=== PATIENT | male | born 1975 | race Caucasian/White ===

== ENCOUNTER 2020-06-01 13:34 | Outpatient (REF) | payer BC, SELFPAY | END 2020-06-01 13:35 | disposition home or self-care (01) | LOC: HO.LAB 13:34 | PROVIDERS: PCP Internal Medicine; Visit Provider Internal Medicine | DX: Z20.828 Contact with and (suspected) exposure to other viral communicable diseases (principal) | CPT/HCPCS: C9803; U0003 ==

== ENCOUNTER 2020-08-20 15:30 | Outpatient (REF) | payer BC, SELFPAY | END 2020-08-20 15:31 | disposition home or self-care (01) | LOC: HO.LAB 15:30 | PROVIDERS: Visit Provider Internal Medicine | DX: Z20.822 Contact with and (suspected) exposure to COVID-19 (principal) | CPT/HCPCS: 36415; C9803; U0003; U0005 ==

== ENCOUNTER 2021-06-10 09:25 | Inpatient (IN) | payer OTHER, SELFPAY ==
--- NOTE | ~2021-06-10 | CT_ITS ---
EXAMINATION: CT ABDOMEN AND PELVIS WITH CONTRAST CLINICAL INFORMATION: Left lower quadrant pain COMPARISON: None TECHNIQUE: Multidetector volumetric images were obtained from the superior aspect of the liver through the pubic symphysis following administration 85 mL of Omnipaque 350 intravenous contrast. Sagittal and coronal reformatted images were obtained on the technologist's workstation. Oral contrast: Yes This CT examination was performed using dose optimization techniques as appropriate, variously including the following: *Automated exposure control *Adjustment of mA and/or kV according to patient size (this includes techniques or standardized protocols for targeted exams where dose is matched to indication/reason for exam; i.e. extremities or head) *Use of iterative reconstruction technique DLP: 872 mGy-cm FINDINGS: LUNG BASES: There are bilateral lower lobe peripheral nodular opacities. Chest CT appearance is nonspecific. LIVER, GALLBLADDER, AND BILIARY TREE: The liver is low in attenuation suggestive of fatty infiltration. No focal hepatic lesion or biliary ductal dilatation is present. The gallbladder is unremarkable with no evidence of radiopaque gallstones, gallbladder wall thickening, or obvious pericholecystic inflammatory changes. PANCREAS: Unremarkable. SPLEEN: Unremarkable. ADRENAL GLANDS: Unremarkable. KIDNEYS AND URETERS: The kidneys are normal in size, shape, and attenuation. No hydronephrosis, hydroureter, or calculi seen. No perinephric stranding. BLADDER: Unremarkable. GASTROINTESTINAL TRACT: There is mild diverticulosis. There is wall thickening and edema of the distal left colon, extensive stranding of the surrounding fat and a small amount of surrounding fluid. Findings are suggestive of diverticulitis or colitis. No evidence of obstruction, perforation or abscess is. ABDOMINAL WALL: No significant hernia is appreciated. LYMPH NODES: Normal. VASCULAR: Unremarkable. PELVIC VISCERA: Unremarkable. OSSEOUS STRUCTURES: Unremarkable. CT/CT abdomen pelvis w con IMPRESSION: Wall thickening and edema of the distal left colon, extensive stranding of the surrounding fat and small amount of fluid. Diverticulitis and colitis should be considered. No evidence of obstruction, perforation or abscess. Fatty liver. Peripheral nodular opacities at the lung bases. This is a nonspecific appearance. Infectious, inflammatory and neoplastic processes should be considered. Covid infection should be excluded. Fleischner guidelines were followed.
[2021-06-10 09:33] VITALS: BP 154/106; PULSE 99; RESP 18; TEMP 36.8; O2SAT 98; BMI 31.8
[2021-06-10 09:59] LABS: Basophils Percent Auto 0.1 % (0-2); COVID-19 Test Positive (Negative); Hematocrit 42.4 % (42.0-52.0); Hemoglobin 15.1 g/dl (14.0-18.0); IDNOW Serial# 9DD0AD1C; Imm Gran Abs Auto 0.02 X10*3/uL (0.00-0.03); Imm Gran Pct Auto 0.3 % (0.0-0.4); Lymphocytes Absolute Auto 1.5 X10*3/uL (1.2-4.9); Lymphocytes Percent Auto 21.4 % (20-40); MANUAL DIFF FLAG SCAN; Mean Corpuscular HGB Conc 35.6 g/dl (31.0-36.0); Mean Corpuscular Hemoglobin 33.6 pg (27.0-33.0); Mean Corpuscular Volume 94.2 fL (80.0-98.0); Mean Platelet Volume 9.1 fL (9.4-12.4); Monocytes Absolute Auto 1.7 X10*3/uL (0.1-1.2); Monocytes Percent Auto 23.6 % (2-11); Neutrophils Absolute Auto 3.9 x10*3/uL (2.0-8.3); Neutrophils Percent Auto 54.6 % (45-73); Platelet Count 195 X10*3/uL (160-400); Red Cell Distribution Width 11.5 % (11.0-16.0); SCAN SMEAR FLAG 1; White Blood Count 7.2 X10*3/uL (4.8-10.8)
[2021-06-10 10:13] LABS: Alanine Aminotransferase 47 U/L (0-40); Albumin Level 4.5 g/dL (3.5-5.0); Alkaline Phosphatase 68 U/L (39-117); Anion Gap 16 (12-20); Aspartate Amino Transferase 31 U/L (5-37); Bilirubin Direct 0.4 mg/dL (0.0-0.5); Bilirubin Total 0.8 mg/dL (0.0-1.0); Blood Urea Nitrogen 9 mg/dL (9-16); Calcium 9.3 mg/dL (8.4-10.2); Carbon Dioxide 23 mmol/L (22-29); Chloride 100 mmol/L (96-108); Creatinine Clr Calc Pharmacy 115.4; Estimated Glomerular Filt Rate > 60; Glucose Random 108 mg/dL (60-115); Lipase 54 U/L (8-78); Potassium 4.1 mmol/L (3.3-5.1); Sodium 135 mmol/L (135-145); Total Protein 7.8 g/dL (6.5-8.0)
[2021-06-10 10:20] LABS: SLIDE REVIEW VERIFIED
--- NOTE | 2021-06-10 13:45 | ED.ABDPAIN ---
HPI - Abdominal Pain General Chief Complaint: Abdominal Pain Stated Complaint: diverticulitis Time Seen by Provider: 06/10/21 13:26 Source: patient Mode of arrival: ambulatory History of Present Illness HPI narrative: 45-year-old male with past medical history of diverticulitis presenting to ED complaining of left lower quadrant abdominal pain x3 days. Pain is nonradiating. also reports low-grade fever 99 this morning. Denies nausea, vomiting, diarrhea, constipation, dysuria /hematuria, flank pain MD elicited complaint: abdominal pain Pertinent past history: diverticulitis Onset (ago): day(s) Pain Consistency: constant Location: LLQ Severity: severe Related Data Allergies Allergy/AdvReac Type Severity Reaction Status Date / Time No Known Allergies Allergy Verified 06/10/21 09:33 Review of Systems Review of Systems Constitutional: + Fever, No Chills, No Fatigue, No Malaise ENT/Mouth: No Hearing loss, No Ear Pain, No sore throat Eyes: No Eye Pain, No Swelling, No Redness Cardiovascular: No Chest Pain, No SOB Respiratory: No Cough, No Dyspnea Gastrointestinal: No Nausea, No Vomiting, No Diarrhea, No Constipation, + Abdominal pain Genitourinary: No Dysuria, No Urinary Frequency, No Hematuria, No Flank Pain, No Urinary Flow Changes Musculoskeletal: No joint pain, No Myalgias, No Joint Swelling Skin: No Skin Lesions, No rash Neuro: No Weakness, No Dizziness, No Headache Yes all other systems are reviewed and are negative Physical Exam Vital Signs: Vital Signs: Last Vital Signs Temp 98.6 F 06/10/21 15:45 Pulse 66 06/10/21 15:45 Resp 18 06/10/21 15:45 BP 147/88 H 06/10/21 15:45 Pulse Ox 95 06/10/21 15:45 BMI result Body Mass Index 31.8 Const: Other: in pain General: cooperative and healthy appearing Orientation/consciousness: patient oriented x3 Limitations: no limitations HENMT: Head: Yes normal to inspection Ears: hearing grossly normal bilaterally General nose exam: Normal external nose present Face and sinus: Yes normal facial exam Eyes: General: appearance normal, both eyes and all related structures EOM: EOMs intact bilaterally Neck: Neck: Yes normal visual inspection and Yes no meningeal signs Resp: Effort & Inspection: normal respiratory effort and no respiratory distress Cardio: Rate: regular rate GI: Inspection: Yes normal to inspection Palpation (GI): Soft to palpation, Tenderness to palpation present (GI) in the LLQ and in the LUQ, Guarding due to palpation present (GI) in the LLQ and not rigid : General: Yes no CVA tenderness Back/Spine/Pelvis: Back: no CVA tenderness Skin: Rashes: no rashes Wounds: no wounds Neuro: General: patient oriented x3 and no meningeal signs Gait exam (Neuro): Normal gait present Extrem: General: Yes normal to inspection Course Course Course Narrative: -1400-- no leukocytosis, ALT mildly elevated, labs otherwise unremarkable - COVID-19 positive, patient aware admits has been COVID-19 positive x1 week -1526--CT abdomen pelvis w con IMPRESSION: Wall thickening and edema of the distal left colon, extensive stranding of the surrounding fat and small amount of fluid. Diverticulitis and colitis should be considered. No evidence of obstruction, perforation or abscess. Fatty liver. ? Peripheral nodular opacities at the lung bases. This is a nonspecific appearance. Infectious, inflammatory and neoplastic processes should be considered. Covid infection should be excluded. ? Fleischner guidelines were followed. >> on re-evaluation patient is still in significant amount of pain, IV Dilaudid ordered as well as IV Levaquin and Flagyl. Will re-evaluate with need of admission vs ability to DC home -1612-- patient is still in significant amount of pain, plan is for admission. Unable to tolerate p.o. at this time MDM - Abdominal Pain MDM Narrative Medical decision making narrative: 45-year-old male with past medical history of diverticulitis presenting to ED complaining of left lower quadrant abdominal pain x3 days. On exam hypertensive likely from pain, abdomen soft with LUQ and LLQ ttp and guarding, no CVAT. Concern for diverticulitis vs pancreatitis vs less likely renal stone/ colic or SBO. Lower concern for appendicitis Plan: Labs, UA, lactic/ blood cultures, CT AP, pain management, IVF Low concern for severe sepsis at this time Differential Diagnosis Differential diagnosis: Likely abdominal pain, renal colic and small bowel obstruction Medical Records Attestation: I reviewed the patient's medical records. Lab Data Attestation: I reviewed the patient's lab results. Result diagrams: 06/10/21 09:44 06/10/21 09:44 Labs: Lab Results 06/10/21 06/10/21 06/10/21 Range/Units 09:44 09:44 09:44 WBC 7.2 (4.8-10.8) X10*3/uL RBC 4.50 L (4.60-5.80) X10*6/uL Hgb 15.1 (14.0-18.0) g/dl Hct 42.4 (42.0-52.0) % MCV 94.2 (80.0-98.0) fL MCH 33.6 H (27.0-33.0) pg MCHC 35.6 (31.0-36.0) g/dl RDW 11.5 (11.0-16.0) % Plt Count 195 (160-400) X10*3/uL MPV 9.1 L (9.4-12.4) fL Immature Gran % (Auto) 0.3 (0.0-0.4) % Neut % (Auto) 54.6 (45-73) % Lymph % (Auto) 21.4 (20-40) % [place] % (Auto) 23.6 H (2-11) % Eos % (Auto) 0.0 (0-4) % Baso % (Auto) 0.1 (0-2) % Lymph # (Auto) 1.5 (1.2-4.9) X10*3/uL [place] # (Auto) 1.7 H (0.1-1.2) X10*3/uL Eos # (Auto) 0.0 (0.0-0.4) X10*3/uL Baso # (Auto) 0.0 (0.0-0.2) X10*3/uL Abs Immat Gran (auto) 0.02 (0.00-0.03) X10*3/uL Absolute Neuts (auto) 3.9 (2.0-8.3) x10*3/uL Absolute Nucleated RBC 0.000 (0.0-0.012) X10*3/uL Nucleated RBC % (auto) 0.0 (0.0-0.2) /100WBC Smear Tech's Comments VERIFIED Sodium 135 (135-145) mmol/L Potassium 4.1 (3.3-5.1) mmol/L Chloride 100 (96-108) mmol/L Carbon Dioxide 23 (22-29) mmol/L Anion Gap 16 (12-20) BUN 9 (9-16) mg/dL Creatinine 1.03 (0.5-1.4) mg/dL Estim Creat Clear Calc 115.4 Estimated GFR > 60 Random Glucose 108 (60-115) mg/dL Lactic Acid (0.5-2.0) mmol/L Calcium 9.3 (8.4-10.2) mg/dL Magnesium 2.2 (1.6-2.6) mg/dL Total Bilirubin 0.8 (0.0-1.0) mg/dL Direct Bilirubin 0.4 (0.0-0.5) mg/dL AST 31 (5-37) U/L ALT 47 H (0-40) U/L Alkaline Phosphatase 68 (39-117) U/L Total Protein 7.8 (6.5-8.0) g/dL Albumin 4.5 (3.5-5.0) g/dL Lipase 54 (8-78) U/L Urine Color Urine Appearance Urine pH (5.0-8.0) Ur Specific [place] (1.005-1.025) Urine Protein (NEG-TRACE) MG/DL Urine Glucose (UA) (NEG) MG/DL Urine Ketones (NEG) MG/DL Urine Blood (NEG) Urine Nitrite (NEG) Ur Leukocyte Esterase (NEG) COVID-19 (COURT) Positive A (Negative) COVID-19 Clin Com See Note 06/10/21 06/10/21 Range/Units 14:36 14:37 WBC (4.8-10.8) X10*3/uL RBC (4.60-5.80) X10*6/uL Hgb (14.0-18.0) g/dl Hct (42.0-52.0) % MCV (80.0-98.0) fL MCH (27.0-33.0) pg MCHC (31.0-36.0) g/dl RDW (11.0-16.0) % Plt Count (160-400) X10*3/uL MPV (9.4-12.4) fL Immature Gran % (Auto) (0.0-0.4) % Neut % (Auto) (45-73) % Lymph % (Auto) (20-40) % [place] % (Auto) (2-11) % Eos % (Auto) (0-4) % Baso % (Auto) (0-2) % Lymph # (Auto) (1.2-4.9) X10*3/uL [place] # (Auto) (0.1-1.2) X10*3/uL Eos # (Auto) (0.0-0.4) X10*3/uL Baso # (Auto) (0.0-0.2) X10*3/uL Abs Immat Gran (auto) (0.00-0.03) X10*3/uL Absolute Neuts (auto) (2.0-8.3) x10*3/uL Absolute Nucleated RBC (0.0-0.012) X10*3/uL Nucleated RBC % (auto) (0.0-0.2) /100WBC Smear Tech's Comments Sodium (135-145) mmol/L Potassium (3.3-5.1) mmol/L Chloride (96-108) mmol/L Carbon Dioxide (22-29) mmol/L Anion Gap (12-20) BUN (9-16) mg/dL Creatinine (0.5-1.4) mg/dL Estim Creat Clear Calc Estimated GFR Random Glucose (60-115) mg/dL Lactic Acid 1.2 (0.5-2.0) mmol/L Calcium (8.4-10.2) mg/dL Magnesium (1.6-2.6) mg/dL Total Bilirubin (0.0-1.0) mg/dL Direct Bilirubin (0.0-0.5) mg/dL AST (5-37) U/L ALT (0-40) U/L Alkaline Phosphatase (39-117) U/L Total Protein (6.5-8.0) g/dL Albumin (3.5-5.0) g/dL Lipase (8-78) U/L Urine Color STRAW Urine Appearance CLEAR Urine pH 6.0 (5.0-8.0) Ur Specific [place] <= 1.005 (1.005-1.025) Urine Protein NEG (NEG-TRACE) MG/DL Urine Glucose (UA) NEG (NEG) MG/DL Urine Ketones 15 (NEG) MG/DL Urine Blood NEG (NEG) Urine Nitrite NEG (NEG) Ur Leukocyte Esterase NEG (NEG) COVID-19 (COURT) (Negative) COVID-19 Clin Com Discharge Plan Discharge Clinical Impression: Diverticulitis, Colitis Patient Disposition: Admitted As Inpatient [facility] Past Medical History Attestation statement: The following information was validated with the patient. Social History Social History Alcohol intake: unknown Patient Tobacco Use Status: Never used Tobacco Smoked in Last 30 Days: No Use of substances other than those prescribed or required for medical reasons: No Advance Directives: No Advance Directives Information Provided: No
[2021-06-10 14:00] VITALS: BP 178/108; PULSE 98; RESP 18; TEMP 37.4; O2SAT 99
[2021-06-10 14:06] LABS: Magnesium 2.2 mg/dL (1.6-2.6)
[2021-06-10] MEDS: Ketorolac Tromethamine 30 MG/ML VIAL 15 MG IVPUSH (14:15)
[2021-06-10] MEDS: 0.9 % Sodium Chloride 1,000 ML 999 ML IV ×2 (14:15→15:28)
[2021-06-10] MEDS: Morphine Sulfate 4 MG/ML CARTRIDGE IVPUSH ×2 (14:18→21:35)
[2021-06-10] MEDS: iohexoL 350 MG/ML 100 ML INFUS..BTL IV (14:23)
[2021-06-10 14:47] LABS: Appearance Urine CLEAR; Color Urine STRAW; Glucose Urine UA NEG (NEG); Leukocyte Esterase Urine NEG (NEG); Nitrite Urine NEG (NEG); Specific Gravity - Urine <= 1.005 (1.005-1.025); Urine Blood NEG (NEG); Urine Ketones 15 MG/DL (NEG); Urine Protein NEG (NEG-TRACE)
[2021-06-10 14:59] LABS: Lactic Acid 1.2 mmol/L (0.5-2.0)
[2021-06-10] MEDS: HYDROmorphone HCl 0.5 MG/0.5 ML SYRINGE IVPUSH ×2 (15:38→17:32)
[2021-06-10] MEDS: metroNIDAZOLE/NS 500 MG/100 ML PIGGYBACK 100 MG IV ×2 (15:39→22:42)
[2021-06-10 15:45] VITALS: BP 147/88; PULSE 66; RESP 18; TEMP 37; O2SAT 95
--- NOTE | 2021-06-10 15:48 | PC.NURSE ---
pt. well appearing. Speaking in full, clear sentences. RR equal and unlabored. Abdomen round, soft, tender to LLQ radiating under the umbilicus. No n/v/d. SKin appropriate for ethnicity
--- NOTE | 2021-06-10 16:00 | PC.NURSE ---
didnt reassess pain after morphine or toradol from previous shift. New pain assessment completed prior to administration of dilaudid
--- NOTE | 2021-06-10 16:58 | P.EN_ITS ---
Event Note Date of Service: 06/10/21 Event Note: the patient was seen and evaluated with EVERTON Jama. I agree with her note, assessment and plan with the following. In Summary, A 45 yo male with PMH of HTN and diverticulitis who presents to the hospital with abd pain for less than a day. He had 3 previous attacks of diverticulitis followed at [facility]. No colonoscopy done, no surgeries. First one 5 years ago. Diverticulitis/Colitis Flagyl+Levofloxacin IVF Liquid diet Surgery consult Rest of evaluations by EVERTON note.
[2021-06-10] MEDS: levoFLOXacin/D5W 750 MG/150 ML PIGGYBACK 100 MG IV (17:00)
--- NOTE | 2021-06-10 17:08 | PM.IMHP ---
History of Present Illness Date of Service: 06/10/21 Attending physician on admission: Viridiana Morton Chief Complaint: Abdominal pain This is a 45-year-old male with history of hypertension, recently diagnosed with COVID-19 who presents the emergency department with abdominal pain. He states he tested positive for COVID-19 approximately week and half ago, he has so far been asymptomatic. He has been having left lower quadrant abdominal pain for the past 3 days. He has no associated nausea, vomiting, diarrhea. He has history of diverticulitis in the past. His pain is consistent with his previous episodes of diverticulitis. He has been attempting to control his symptoms with a liquid diet. He denies any associated fever or chills. His symptoms persisted today and his pain is more severe than any previous bout of diverticulitis in the past and this prompted him to come to the hospital for further evaluation. He is afebrile. Lab work is unremarkable with no evidence of leukocytosis. CT scan of the abdomen shows wall thickening and edema of the distal left colon, extensive stranding of the surrounding fat and small amount of fluid. Diverticulitis and colitis should be considered. No evidence of obstruction perforation or abscess. It also showed nodular opacities at the lung bases which was nonspecific. He was treated with IV antibiotics and a decision was made to admit him to the hospital due to severe persistent abdominal pain. COVID-19 vaccination status- received Moderna vaccine x2 Review of Systems Constitutional: Constitutional: Denies chills and Denies fever(s) Cardiovascular: Cardiovascular: Denies dyspnea Respiratory: Respiratory: Denies cough and Denies dyspnea Gastrointestinal: Gastrointestinal: Reports abdominal pain, Denies nausea and Denies vomiting [facility] Medical History (Updated 06/10/21 @ 17:14 by EVERTON Watt) Diverticulitis HTN (hypertension) Functional capacity: independent ambulation Family History (Updated 06/10/21 @ 17:15 by EVERTON Watt) Other Diabetes Social History (Updated 06/10/21 @ 17:15 by EVERTON Watt) Alcohol intake: current Patient Tobacco Use Status: Never used Tobacco Smoked in Last 30 Days: No Use of substances other than those prescribed or required for medical reasons: No Advance Directives: No Advance Directives Information Provided: No Meds Allergies Allergy/AdvReac Type Severity Reaction Status Date / Time No Known Allergies Allergy Verified 06/10/21 09:33 Active Medications: Current Medications Acetaminophen (Acetaminophen 325 Mg Tablet) 650 mg PO Q6H PRN PRN Reason: Pain, Mild (Pain Scale 1-3) Docusate Sodium (Docusate Sodium 100 Mg Capsule) 100 mg PO DAILY PRN PRN Reason: Constipation Enoxaparin Sodium (Enoxaparin Sodium 40 Mg/0.4 Ml Syringe) 40 mg SUBCUT Q24H MISHEL Levofloxacin (Levaquin) 500 mg in 100 mls @ 100 mls/hr IV Q24H MISHEL Metronidazole (Flagyl) 500 mg in 100 mls @ 100 mls/hr IV Q8H [facility] Lactated Ringer's (Lr) 1,000 mls @ 100 mls/hr IVCONT .Q10H MISHEL Morphine Sulfate (Morphine Sulfate 4 Mg/Ml Cartridge) 4 mg IVPUSH Q4H PRN; Protocol PRN Reason: Pain, Severe (Pain Scale 7-10) Ondansetron HCl (Ondansetron Hcl 4 Mg/2 Ml Vial) 4 mg IVPUSH Q8H PRN PRN Reason: Nausea and Vomiting Pharmacy Consult (Consult Rx Perform Med Rec) 1 each MISCELLANE ONCE PRN PRN Reason: Consult order Sodium Chloride (0.9 % Sodium Chloride Flush 3 Ml Syringe) 3 ml IVFLUSH QSHIFT [facility] Home Medications Medication Instructions Recorded Confirmed Last Taken Type atorvastatin 40 mg tablet 1 tab PO DAILY 06/10/21 06/10/21 Unknown History clonidine HCl 0.2 mg tablet 1 tab PO BID 06/10/21 06/10/21 Unknown History lisinopril 20 mg tablet 1 tab PO DAILY 06/10/21 06/10/21 Unknown History Physical Exam Vital Signs and Narrative: Vital Signs: Last Vital Signs Temp 98.6 F 06/10/21 15:45 Pulse 66 06/10/21 15:45 Resp 18 06/10/21 15:45 BP 147/88 H 06/10/21 15:45 Pulse Ox 95 06/10/21 15:45 BMI result Body Mass Index 31.8 Const: Nutritional Appearance: well nourished Orientation/consciousness: patient oriented x3 HENMT: Head: Yes normocephalic and Yes atraumatic Eyes: Sclerae: sclerae normal Resp: Effort & Inspection: normal respiratory effort and no respiratory distress Auscultation: clear to auscultation bilaterally Cardio: Rate: regular rate Rhythm: regular rhythm GI: Other: tender to palpation primarily in the left lower quadrant Inspection: No distended Palpation (GI): Soft to palpation Neuro: General: patient oriented x3 Cranial nerves: Yes CN's II-XII intact bilaterally and Yes Bilaterally intact EOM present Results Labs CBC and Chem 7: 06/10/21 09:44 06/10/21 09:44 Labs: Laboratory Results - last 24 hr 06/10/21 06/10/21 06/10/21 09:44 09:44 09:44 MCV 94.2 MCH 33.6 H MCHC 35.6 RDW 11.5 Plt Count 195 MPV 9.1 L Immature Gran % (Auto) 0.3 Neut % (Auto) 54.6 Lymph % (Auto) 21.4 [place] % (Auto) 23.6 H Eos % (Auto) 0.0 Baso % (Auto) 0.1 Lymph # (Auto) 1.5 [place] # (Auto) 1.7 H Eos # (Auto) 0.0 Baso # (Auto) 0.0 Abs Immat Gran (auto) 0.02 Absolute Neuts (auto) 3.9 Absolute Nucleated RBC 0.000 Nucleated RBC % (auto) 0.0 Smear Tech's Comments VERIFIED Anion Gap 16 Estim Creat Clear Calc 115.4 Estimated GFR > 60 Random Glucose 108 Lactic Acid Calcium 9.3 Magnesium 2.2 Total Bilirubin 0.8 Direct Bilirubin 0.4 AST 31 ALT 47 H Alkaline Phosphatase 68 Total Protein 7.8 Albumin 4.5 Lipase 54 Urine Color Urine Appearance Urine pH Ur Specific [place] Urine Protein Urine Glucose (UA) Urine Ketones Urine Blood Urine Nitrite Ur Leukocyte Esterase COVID-19 (COURT) Positive A COVID-19 Clin Com See Note 06/10/21 06/10/21 14:36 14:37 MCV MCH MCHC RDW Plt Count MPV Immature Gran % (Auto) Neut % (Auto) Lymph % (Auto) [place] % (Auto) Eos % (Auto) Baso % (Auto) Lymph # (Auto) [place] # (Auto) Eos # (Auto) Baso # (Auto) Abs Immat Gran (auto) Absolute Neuts (auto) Absolute Nucleated RBC Nucleated RBC % (auto) Smear Tech's Comments Anion Gap Estim Creat Clear Calc Estimated GFR Random Glucose Lactic Acid 1.2 Calcium Magnesium Total Bilirubin Direct Bilirubin AST ALT Alkaline Phosphatase Total Protein Albumin Lipase Urine Color STRAW Urine Appearance CLEAR Urine pH 6.0 Ur Specific [place] <= 1.005 Urine Protein NEG Urine Glucose (UA) NEG Urine Ketones 15 Urine Blood NEG Urine Nitrite NEG Ur Leukocyte Esterase NEG COVID-19 (COURT) COVID-19 Clin Com Imaging Radiologist's Impressions: Impressions Abdomen/Pelvis CT 06/10/21 14:23 IMPRESSION: Wall thickening and edema of the distal left colon, extensive stranding of the surrounding fat and small amount of fluid. Diverticulitis and colitis should be considered. No evidence of obstruction, perforation or abscess. Fatty liver. Peripheral nodular opacities at the lung bases. This is a nonspecific appearance. Infectious, inflammatory and neoplastic processes should be considered. Covid infection should be excluded. Fleischner guidelines were followed. Assessment and Plan (1) Colitis: Status: Acute (2) Diverticulitis: Status: Acute this is a 45-year-old male with history of hypertension, multiple bouts of diverticulitis, recent diagnosis of COVID-19 who presents to the emergency department with abdominal pain found to have recurrent colitis versus diverticulitis abdominal pain CT scan with concern of colitis versus diverticulitis h/o multiple previous bouts of diverticulitis. No previous abdominal surgeries. No previous colonoscopy Continue IV levofloxacin, Flagyl general surgery consultation clear liquid diet, advanced as tolerated; IVF pain management COVID-19 diagnosed approximately 10 days ago. Asymptomatic Not currently requiring supplemental oxygen Isolation hypertension Continue home dose of lisinopril, clonidine DVT prophylaxis -Lovenox Code status- full code HCP - endorses his mother Maira attending-Dr. Morton Quality Stroke Does the patient have a stroke diagnosis?: No VTE Prior VTE?: No VTE Risk Level:: Medical - moderate - high VTE Device Contraindication: N/A - Device Ordered VTE Drug Contraindication: N/A - Med Ordered
[2021-06-10 17:20] VITALS: BP 149/99; PULSE 92; RESP 18; TEMP 36.8; O2SAT 97
--- NOTE | 2021-06-10 17:29 | P.CONGS_ITS ---
History of Present Illness Consult details Consult date: 06/10/21 Narrative: 45M here in the ED for left sided abdominal pain. He says he has had this for 2-3 days. He says he has hx of diverticulitis, and has had 2 episodes in the past. The last one was about 2 years ago. He denies diarrhea of bloody stools. He has never had a colonoscopy in the past. He denies fever at home. Review of Systems Constitutional: Constitutional: Denies chills and Denies fever(s) Cardiovascular: Cardiovascular: Denies chest pain, Denies dyspnea and Denies dyspnea on exertion Respiratory: Respiratory: Denies cough, Denies dyspnea and Denies dyspnea on exertion Gastrointestinal: Gastrointestinal: Denies hematochezia and Denies change in bowel habits Genitourinary: Genitourinary: Denies hematuria and Denies difficulty urinating Musculoskeletal: Musculoskeletal: Denies back pain and Denies limited range of motion Neurologic: Denies focal weakness and Denies convulsions Psychiatric: Psychiatric: Denies depression and Denies mood swings PMF Past Medical History Medical History Diverticulitis HTN (hypertension) Functional capacity: independent ambulation Family History Family History Other Diabetes Social History Social History Alcohol intake: current Patient Tobacco Use Status: Never used Tobacco Smoked in Last 30 Days: No Use of substances other than those prescribed or required for medical reasons: No Advance Directives: No Advance Directives Information Provided: No service: No Current occupational status: employed Meds Allergies Allergy/AdvReac Type Severity Reaction Status Date / Time No Known Allergies Allergy Verified 06/10/21 09:33 Active Medications: Current Medications Acetaminophen (Acetaminophen 325 Mg Tablet) 650 mg PO Q6H PRN PRN Reason: Pain, Mild (Pain Scale 1-3) Atorvastatin Calcium (Atorvastatin Calcium 40 Mg Tablet) 40 mg PO DAILY MISHEL Clonidine HCl (Clonidine Hcl 0.2 Mg Tablet) 0.2 mg PO BID MISHEL; Protocol Docusate Sodium (Docusate Sodium 100 Mg Capsule) 100 mg PO DAILY PRN PRN Reason: Constipation Enoxaparin Sodium (Enoxaparin Sodium 40 Mg/0.4 Ml Syringe) 40 mg SUBCUT Q24H MISHEL Levofloxacin (Levaquin) 500 mg in 100 mls @ 100 mls/hr IV Q24H MISHEL Metronidazole (Flagyl) 500 mg in 100 mls @ 100 mls/hr IV Q8H [facility] Lactated Ringer's (Lr) 1,000 mls @ 100 mls/hr IVCONT .Q10H MISHEL Lisinopril (Lisinopril 20 Mg Tablet) 20 mg PO DAILY MISHEL; Protocol Morphine Sulfate (Morphine Sulfate 4 Mg/Ml Cartridge) 4 mg IVPUSH Q4H PRN; Protocol PRN Reason: Pain, Severe (Pain Scale 7-10) Ondansetron HCl (Ondansetron Hcl 4 Mg/2 Ml Vial) 4 mg IVPUSH Q8H PRN PRN Reason: Nausea and Vomiting Pharmacy Consult (Consult Rx Perform Med Rec) 1 each MISCELLANE ONCE PRN PRN Reason: Consult order Sodium Chloride (0.9 % Sodium Chloride Flush 3 Ml Syringe) 3 ml IVFLUSH QSHIFT [facility] Home Medications Medication Instructions Recorded Confirmed Last Taken Type atorvastatin 40 mg tablet 1 tab PO DAILY 06/10/21 06/10/21 Unknown History clonidine HCl 0.2 mg tablet 1 tab PO BID 06/10/21 06/10/21 Unknown History lisinopril 20 mg tablet 1 tab PO DAILY 06/10/21 06/10/21 Unknown History Physical Exam Vital Signs: Vital Signs: Last Vital Signs Temp 98.3 F 06/10/21 17:20 Pulse 92 06/10/21 17:20 Resp 18 06/10/21 17:20 BP 149/99 H 06/10/21 17:20 Pulse Ox 97 06/10/21 17:20 BMI result Body Mass Index 31.8 Const: General: comfortable and no acute distress Orientation/co nsciousness: patient oriented x3 Neck: Neck: Yes no lymphadenopathy Resp: Auscultation: clear to auscultation bilaterally Cardio: Rhythm: regular rhythm GI: Other: signfiicant tenderness on the hemiabdomen, mostly on the lower part Palpation (GI): Soft to palpation, Tenderness to palpation present (GI) and no guarding Neuro: General: patient oriented x3 Results Labs Result diagrams: 06/13/21 07:09 06/13/21 07:09 Labs: Abnormal lab results 06/10/21 06/10/21 06/10/21 Range/Units 09:44 09:44 09:44 RBC 4.50 L (4.60-5.80) X10*6/uL MCH 33.6 H (27.0-33.0) pg MPV 9.1 L (9.4-12.4) fL [place] % (Auto) 23.6 H (2-11) % [place] # (Auto) 1.7 H (0.1-1.2) X10*3/uL ALT 47 H (0-40) U/L COVID-19 (COURT) Positive A (Negative) Short CBC 06/10/21 Range/Units 09:44 WBC 7.2 (4.8-10.8) X10*3/uL Hgb 15.1 (14.0-18.0) g/dl Hct 42.4 (42.0-52.0) % Plt Count 195 (160-400) X10*3/uL BMP 06/10/21 09:44 Sodium 135 Potassium 4.1 Chloride 100 Carbon Dioxide 23 BUN 9 Creatinine 1.03 Calcium 9.3 Liver Function 06/10/21 Range/Units 09:44 Total Bilirubin 0.8 (0.0-1.0) mg/dL Direct Bilirubin 0.4 (0.0-0.5) mg/dL AST 31 (5-37) U/L ALT 47 H (0-40) U/L Alkaline Phosphatase 68 (39-117) U/L Albumin 4.5 (3.5-5.0) g/dL Urine 06/10/21 Range/Units 14:36 Urine Color STRAW Urine Appearance CLEAR Urine pH 6.0 (5.0-8.0) Ur Specific [place] <= 1.005 (1.005-1.025) Urine Protein NEG (NEG-TRACE) MG/DL Urine Glucose (UA) NEG (NEG) MG/DL All other labs normal. Imaging Abdomen CT scan report/results: report reviewed and image reviewed CT scan - pelvis: report reviewed and image reviewed Assessment and Plan (1) Diverticulitis: Status: Acute He was admitted for left sided abdominal pain, and his CT scan shows signicant inflammatory changes in a short segment of the sigmoid/left colon junction. I agree with IV antibiotic therapy. He should be on bowel rest. IV fluids have been started. He understands that if he worsens or does not improve within a reasonable period of time, surgical intervention with resection may be necessary. He understands the plan well and I will follow along while he is in the hospital. Ideally, he should have a colonoscopy prior to any surgical intervention. Procedures Date of Service Date of Service: 06/10/21
[2021-06-10] MEDS: cloNIDine HCL 0.2 MG TABLET PO (21:36)
[2021-06-10] MEDS: Enoxaparin Sodium 40 MG/0.4 ML SYRINGE SUBCUT (21:36)
[2021-06-10] MEDS: Lactated Ringers 1,000 ML 100 ML IVCONT (21:45)
[2021-06-11] MEDS: Morphine Sulfate 4 MG/ML CARTRIDGE IVPUSH ×2 (02:10→06:28)
[2021-06-11] MEDS: metroNIDAZOLE/NS 500 MG/100 ML PIGGYBACK 100 MG IV ×3 (06:27→23:38)
[2021-06-11] MEDS: Lactated Ringers 1,000 ML 100 ML IVCONT ×2 (06:28→14:24)
[2021-06-11 07:37] LABS: Basophils Percent Auto 0.1 % (0-2); Eosinophils Percent Auto 0.1 % (0-4); Hematocrit 36.3 % (42.0-52.0); Hemoglobin 12.4 g/dl (14.0-18.0); Imm Gran Abs Auto 0.02 X10*3/uL (0.00-0.03); Imm Gran Pct Auto 0.3 % (0.0-0.4); Lymphocytes Absolute Auto 1.4 X10*3/uL (1.2-4.9); Lymphocytes Percent Auto 19.7 % (20-40); MANUAL DIFF FLAG SCAN; Mean Corpuscular HGB Conc 34.2 g/dl (31.0-36.0); Mean Corpuscular Hemoglobin 32.6 pg (27.0-33.0); Mean Corpuscular Volume 95.5 fL (80.0-98.0); Mean Platelet Volume 8.8 fL (9.4-12.4); Monocytes Absolute Auto 1.7 X10*3/uL (0.1-1.2); Monocytes Percent Auto 23.5 % (2-11); Neutrophils Absolute Auto 4.1 x10*3/uL (2.0-8.3); Neutrophils Percent Auto 56.3 % (45-73); Platelet Count 165 X10*3/uL (160-400); Red Cell Distribution Width 11.5 % (11.0-16.0); SCAN SMEAR FLAG 1; White Blood Count 7.3 X10*3/uL (4.8-10.8)
[2021-06-11 08:05] LABS: Anion Gap 12 (12-20); Blood Urea Nitrogen 6 mg/dL (9-16); Calcium 8.2 mg/dL (8.4-10.2); Carbon Dioxide 24 mmol/L (22-29); Chloride 101 mmol/L (96-108); Creatinine Clr Calc Pharmacy 136.7; Estimated Glomerular Filt Rate > 60; Glucose Random 91 mg/dL (60-115); Potassium 3.7 mmol/L (3.3-5.1); Sodium 133 mmol/L (135-145)
[2021-06-11] MEDS: cloNIDine HCL 0.2 MG TABLET PO ×2 (08:11→21:17)
[2021-06-11] MEDS: 0.9 % Sodium Chloride Flush 3 ML SYRINGE IVFLUSH (08:12)
[2021-06-11] MEDS: Atorvastatin Calcium 40 MG TABLET PO (08:12)
[2021-06-11] MEDS: lisinopriL 20 MG TABLET PO (08:12)
[2021-06-11 08:51] VITALS: BP 168/104; PULSE 80; RESP 18
[2021-06-11 09:22] LABS: SLIDE REVIEW VERIFIED
--- NOTE | 2021-06-11 09:22 | P.PNGS_ITS ---
Subjective Subjective Date of Service: 06/11/21 Interval history: Feels more comfortable today but says that he thinks he has better colon pain control with Dilaudid than morphine Passing flatus Looks well otherwise Physical Exam Vital Signs: Vital Signs: Last Vital Signs Temp 98.3 F 06/10/21 17:20 Pulse 80 06/11/21 08:51 Resp 18 06/11/21 08:51 BP 168/104 H 06/11/21 08:51 Pulse Ox 97 06/10/21 17:20 BMI result Body Mass Index 31.8 Const: General: no acute distress Resp: Effort & Inspection: normal respiratory effort Cardio: Rate: regular rate GI: Other: Soft, tender on the left side, no guarding rebound Objective Data Active Medications Acetaminophen (Acetaminophen 325 Mg Tablet) 650 mg PO Q6H PRN PRN Reason: Pain, Mild (Pain Scale 1-3) Atorvastatin Calcium (Atorvastatin Calcium 40 Mg Tablet) 40 mg PO DAILY [facility] Last Admin: 06/11/21 08:12 Dose: 40 mg Documented by: CAMERON Clonidine HCl (Clonidine Hcl 0.2 Mg Tablet) 0.2 mg PO BID [facility]; Protocol Last Admin: 06/11/21 08:11 Dose: 0.2 mg Documented by: CAMERON Docusate Sodium (Docusate Sodium 100 Mg Capsule) 100 mg PO DAILY PRN PRN Reason: Constipation Enoxaparin Sodium (Enoxaparin Sodium 40 Mg/0.4 Ml Syringe) 40 mg SUBCUT Q24H [facility] Last Admin: 06/10/21 21:36 Dose: 40 mg Documented by: ELIZA Levofloxacin (Levaquin) 500 mg in 100 mls @ 100 mls/hr IV Q24H [facility] Metronidazole (Flagyl) 500 mg in 100 mls @ 100 mls/hr IV Q8H [facility] Last Infusion: 06/11/21 07:40 Dose: 0 mls/hr Documented by: CAMERON Lactated Ringer's (Lr) 1,000 mls @ 100 mls/hr IVCONT .Q10H [facility] Last Admin: 06/11/21 06:28 Dose: 100 mls/hr Documented by: ELIZA Lisinopril (Lisinopril 20 Mg Tablet) 20 mg PO DAILY [facility]; Protocol Last Admin: 06/11/21 08:12 Dose: 20 mg Documented by: CAMERON Morphine Sulfate (Morphine Sulfate 4 Mg/Ml Cartridge) 4 mg IVPUSH Q4H PRN; Protocol PRN Reason: Pain, Severe (Pain Scale 7-10) Last Admin: 06/11/21 06:28 Dose: 4 mg Documented by: ELIZA Ondansetron HCl (Ondansetron Hcl 4 Mg/2 Ml Vial) 4 mg IVPUSH Q8H PRN PRN Reason: Nausea and Vomiting Pharmacy Consult (Consult Rx Perform Med Rec) 1 each MISCELLANE ONCE PRN PRN Reason: Consult order Sodium Chloride (0.9 % Sodium Chloride Flush 3 Ml Syringe) 3 ml IVFLUSH QSHIFT [facility] Last Admin: 06/11/21 08:12 Dose: 3 ml Documented by: CAMERON Labs CBC & Chem 7: 06/11/21 07:29 06/11/21 07:29 Labs: Laboratory Results - last 24 hr 06/10/21 06/10/21 06/10/21 09:44 09:44 09:44 MCV 94.2 MCH 33.6 H MCHC 35.6 RDW 11.5 Plt Count 195 MPV 9.1 L Immature Gran % (Auto) 0.3 Neut % (Auto) 54.6 Lymph % (Auto) 21.4 [facility] % (Auto) 23.6 H Eos % (Auto) 0.0 Baso % (Auto) 0.1 Lymph # (Auto) 1.5 [facility] # (Auto) 1.7 H Eos # (Auto) 0.0 Baso # (Auto) 0.0 Abs Immat Gran (auto) 0.02 Absolute Neuts (auto) 3.9 Absolute Nucleated RBC 0.000 Nucleated RBC % (auto) 0.0 Smear Tech's Comments VERIFIED Anion Gap 16 Estim Creat Clear Calc 115.4 Estimated GFR > 60 Random Glucose 108 Lactic Acid Calcium 9.3 Magnesium 2.2 Total Bilirubin 0.8 Direct Bilirubin 0.4 AST 31 ALT 47 H Alkaline Phosphatase 68 Total Protein 7.8 Albumin 4.5 Lipase 54 Urine Color Urine Appearance Urine pH Ur Specific [place] Urine Protein Urine Glucose (UA) Urine Ketones Urine Blood Urine Nitrite Ur Leukocyte Esterase COVID-19 (COURT) Positive A COVID-19 Clin Com See Note 06/10/21 06/10/21 06/11/21 14:36 14:37 07:29 MCV 95.5 MCH 32.6 MCHC 34.2 RDW 11.5 Plt Count 165 MPV 8.8 L Immature Gran % (Auto) 0.3 Neut % (Auto) 56.3 Lymph % (Auto) 19.7 L [facility] % (Auto) 23.5 H Eos % (Auto) 0.1 Baso % (Auto) 0.1 Lymph # (Auto) 1.4 [facility] # (Auto) 1.7 H Eos # (Auto) 0.0 Baso # (Auto) 0.0 Abs Immat Gran (auto) 0.02 Absolute Neuts (auto) 4.1 Absolute Nucleated RBC 0.000 Nucleated RBC % (auto) 0.0 Smear Tech's Comments Anion Gap Estim Creat Clear Calc Estimated GFR Random Glucose Lactic Acid 1.2 Calcium Magnesium Total Bilirubin Direct Bilirubin AST ALT Alkaline Phosphatase Total Protein Albumin Lipase Urine Color STRAW Urine Appearance CLEAR Urine pH 6.0 Ur Specific [place] <= 1.005 Urine Protein NEG Urine Glucose (UA) NEG Urine Ketones 15 Urine Blood NEG Urine Nitrite NEG Ur Leukocyte Esterase NEG COVID-19 (COURT) [facility] 06/11/21 07:29 MCV MCH MCHC RDW Plt Count MPV Immature Gran % (Auto) Neut % (Auto) Lymph % (Auto) [facility] % (Auto) Eos % (Auto) Baso % (Auto) Lymph # (Auto) [facility] # (Auto) Eos # (Auto) Baso # (Auto) Abs Immat Gran (auto) Absolute Neuts (auto) Absolute Nucleated RBC Nucleated RBC % (auto) Smear Tech's Comments Anion Gap 12 Estim Creat Clear Calc 136.7 Estimated GFR > 60 Random Glucose 91 Lactic Acid Calcium 8.2 L D Magnesium Total Bilirubin Direct Bilirubin AST ALT Alkaline Phosphatase Total Protein Albumin Lipase Urine Color Urine Appearance Urine pH Ur Specific [place] Urine Protein Urine Glucose (UA) Urine Ketones Urine Blood Urine Nitrite Ur Leukocyte Esterase COVID-19 (COURT) [employer] Procedures Date of Service Date of Service: 06/11/21 Progress Note: A&P Assessment and plan (1) Diverticulitis: Status: Acute Assessment and Plan: Keep on clear liquids only IV antibiotics Encourage ambulation Switch to Dilaudid Will continue to follow Exam otherwise benign Fall Risk Details Current Medications: Current Medications Acetaminophen (Acetaminophen 325 Mg Tablet) 650 mg PO Q6H PRN PRN Reason: Pain, Mild (Pain Scale 1-3) Atorvastatin Calcium (Atorvastatin Calcium 40 Mg Tablet) 40 mg PO DAILY [facility] Last Admin: 06/11/21 08:12 Dose: 40 mg Documented by: Clonidine HCl (Clonidine Hcl 0.2 Mg Tablet) 0.2 mg PO BID [facility]; Protocol Last Admin: 06/11/21 08:11 Dose: 0.2 mg Documented by: Docusate Sodium (Docusate Sodium 100 Mg Capsule) 100 mg PO DAILY PRN PRN Reason: Constipation Enoxaparin Sodium (Enoxaparin Sodium 40 Mg/0.4 Ml Syringe) 40 mg SUBCUT Q24H [facility] Last Admin: 06/10/21 21:36 Dose: 40 mg Documented by: Levofloxacin (Levaquin) 500 mg in 100 mls @ 100 mls/hr IV Q24H [facility] Metronidazole (Flagyl) 500 mg in 100 mls @ 100 mls/hr IV Q8H [facility] Last Infusion: 06/11/21 07:40 Dose: Infused Documented by: Lactated Ringer's (Lr) 1,000 mls @ 100 mls/hr IVCONT .Q10H [facility] Last Admin: 06/11/21 06:28 Dose: 100 mls/hr Documented by: Lisinopril (Lisinopril 20 Mg Tablet) 20 mg PO DAILY [facility]; Protocol Last Admin: 06/11/21 08:12 Dose: 20 mg Documented by: Morphine Sulfate (Morphine Sulfate 4 Mg/Ml Cartridge) 4 mg IVPUSH Q4H PRN; Protocol PRN Reason: Pain, Severe (Pain Scale 7-10) Last Admin: 06/11/21 06:28 Dose: 4 mg Documented by: Ondansetron HCl (Ondansetron Hcl 4 Mg/2 Ml Vial) 4 mg IVPUSH Q8H PRN PRN Reason: Nausea and Vomiting Pharmacy Consult (Consult Rx Perform Med Rec) 1 each MISCELLANE ONCE PRN PRN Reason: Consult order Sodium Chloride (0.9 % Sodium Chloride Flush 3 Ml Syringe) 3 ml IVFLUSH QSHIFT [facility] Last Admin: 06/11/21 08:12 Dose: 3 ml Documented by: Time Spent With Patient Time: Total time spent is greater than 50% in coordination of care (as documented) at patient's floor/unit and/or counseling patient: Time with patient: 15 - 24 minutes Quality Stroke Does the patient have a stroke diagnosis?: No VTE Prior VTE?: No VTE Risk Level:: Medical - moderate - high VTE Device Contraindication: N/A - Device Ordered VTE Drug Contraindication: N/A - Med Ordered
[2021-06-11] MEDS: HYDROmorphone HCl 0.5 MG/0.5 ML SYRINGE IVPUSH ×2 (10:13→14:25)
[2021-06-11] MEDS: ondansetron HCL 4 MG/2 ML VIAL IVPUSH (10:14)
[2021-06-11] MEDS: Acetaminophen 325 MG TABLET 650 MG PO ×2 (10:14→17:37)
--- NOTE | 2021-06-11 12:36 | P.PNIM_ITS ---
Subjective Subjective Date of Service: 06/11/21 Review of Systems follow-up diverticulitis Still some left lower quadrant tenderness especially with ambulation Eating and drinking okay with no issue Denies nausea, vomiting, diarrhea or bloody stools Physical Exam Verdana 4l Vital Signs: Verdana 4d Verdana 4d Vital Signs: Verdana 4d Verdana 4Bd Last Vital Signs Verdana 4d [employer] New 4d [employer] New 4d Temp 98.3 F 06/10/21 17:20 [employer] New 4d Pulse 80 06/11/21 08:51 [employer] NewNew 4d Resp 18 06/11/21 08:51 BP 168/104 H 06/11/21 08:51 Pulse Ox 97 06/10/21 17:20 BMI result Body Mass Index 31.8 Appearing in no acute distress lung sounds are clear to auscultation heart regular rate rhythm, clear S1, S2 positive bowel sounds, left lower quadrant tenderness neuro patient is alert x3, no focal deficits Objective Data Active Medications Acetaminophen (Acetaminophen 325 Mg Tablet) 650 mg PO Q6H PRN PRN Reason: Pain, Mild (Pain Scale 1-3) Last Admin: 06/11/21 10:14 Dose: 650 mg Documented by: CAMERON Atorvastatin Calcium (Atorvastatin Calcium 40 Mg Tablet) 40 mg PO DAILY [facility] Last Admin: 06/11/21 08:12 Dose: 40 mg Documented by: CAMERON Clonidine HCl (Clonidine Hcl 0.2 Mg Tablet) 0.2 mg PO BID [facility]; Protocol Last Admin: 06/11/21 08:11 Dose: 0.2 mg Documented by: CAMERON Docusate Sodium (Docusate Sodium 100 Mg Capsule) 100 mg PO DAILY PRN PRN Reason: Constipation Enoxaparin Sodium (Enoxaparin Sodium 40 Mg/0.4 Ml Syringe) 40 mg SUBCUT Q24H [facility] Last Admin: 06/10/21 21:36 Dose: 40 mg Documented by: ELIZA Hydromorphone HCl (Hydromorphone Hcl 0.5 Mg/0.5 Ml Syringe) 0.5 mg IVPUSH Q4H PRN; Protocol PRN Reason: Pain, Severe (Pain Scale 7-10) Last Admin: 06/11/21 10:13 Dose: 0.5 mg Documented by: CAMERON Levofloxacin (Levaquin) 500 mg in 100 mls @ 100 mls/hr IV Q24H [facility] Metronidazole (Flagyl) 500 mg in 100 mls @ 100 mls/hr IV Q8H [facility] Last Infusion: 06/11/21 07:40 Dose: 0 mls/hr Documented by: CAMERON Lactated Ringer's (Lr) 1,000 mls @ 100 mls/hr IVCONT .Q10H [facility] Last Admin: 06/11/21 06:28 Dose: 100 mls/hr Documented by: ELIZA Ketorolac Tromethamine (Ketorolac Tromethamine 30 Mg/Ml Vial) 15 mg IVPUSH Q6H PRN PRN Reason: Pain, Severe (Pain Scale 7-10) Lisinopril (Lisinopril 20 Mg Tablet) 20 mg PO DAILY [facility]; Protocol Last Admin: 06/11/21 08:12 Dose: 20 mg Documented by: CAMERON Ondansetron HCl (Ondansetron Hcl 4 Mg/2 Ml Vial) 4 mg IVPUSH Q8H PRN PRN Reason: Nausea and Vomiting Last Admin: 06/11/21 10:14 Dose: 4 mg Documented by: CAMERON Pharmacy Consult (Consult Rx Perform Med Rec) 1 each MISCELLANE ONCE PRN PRN Reason: Consult order Sodium Chloride (0.9 % Sodium Chloride Flush 3 Ml Syringe) 3 ml IVFLUSH QSHIFT [facility] Last Admin: 06/11/21 08:12 Dose: 3 ml Documented by: CAMERON Labs CBC & Chem 7: 06/11/21 07:29 06/11/21 07:29 Labs: Laboratory Results - last 24 hr 06/10/21 06/10/21 06/10/21 09:44 09:44 14:36 MCV MCH MCHC RDW Plt Count MPV Immature Gran % (Auto) Neut % (Auto) Lymph % (Auto) [place] % (Auto) Eos % (Auto) Baso % (Auto) Lymph # (Auto) [place] # (Auto) Eos # (Auto) Baso # (Auto) Abs Immat Gran (auto) Absolute Neuts (auto) Absolute Nucleated RBC Nucleated RBC % (auto) Smear Tech's Comments VERIFIED Anion Gap Estim Creat Clear Calc Estimated GFR Random Glucose Lactic Acid Calcium Magnesium 2.2 Urine Color STRAW Urine Appearance CLEAR Urine pH 6.0 Ur Specific [place] <= 1.005 Urine Protein NEG Urine Glucose (UA) NEG Urine Ketones 15 Urine Blood NEG Urine Nitrite NEG Ur Leukocyte Esterase NEG 06/10/21 06/11/21 06/11/21 14:37 07:29 07:29 MCV 95.5 MCH 32.6 MCHC 34.2 RDW 11.5 Plt Count 165 MPV 8.8 L Immature Gran % (Auto) 0.3 Neut % (Auto) 56.3 Lymph % (Auto) 19.7 L [place] % (Auto) 23.5 H Eos % (Auto) 0.1 Baso % (Auto) 0.1 Lymph # (Auto) 1.4 [place] # (Auto) 1.7 H Eos # (Auto) 0.0 Baso # (Auto) 0.0 Abs Immat Gran (auto) 0.02 Absolute Neuts (auto) 4.1 Absolute Nucleated RBC 0.000 Nucleated RBC % (auto) 0.0 Smear Tech's Comments VERIFIED Anion Gap 12 Estim Creat Clear Calc 136.7 Estimated GFR > 60 Random Glucose 91 Lactic Acid 1.2 Calcium 8.2 L D Magnesium Urine Color Urine Appearance Urine pH Ur Specific [place] Urine Protein Urine Glucose (UA) Urine Ketones Urine Blood Urine Nitrite Ur Leukocyte Esterase Assessment and Plan (1) Diverticulitis: Status: Acute (2) COVID-19: Status: Acute Assessment and Plan: this is a 45-year-old male with history of hypertension, multiple bouts of diverticulitis, recent diagnosis of COVID-19 who presents to the emergency department with abdominal pain found to have recurrent colitis versus diverticulitis. Abdominal pain secondary to diverticulitis previous hx of diverticulitis continue Levaquin and flagyl General surg rec continuing abx advance diet COVID-19 . Previously vaccinated with Moderna vaccine x2 Diagnosed 10 days ago, asymptomatic Hypertension. Stable Continue home dose of lisinopril, clonidine Disposition. Home tomorrow if medically stable DVT prophylaxis -Lovenox Code status- full code HCP - endorses his mother Maira attending-Dr. Covarrubias Quality Stroke Does the patient have a stroke diagnosis?: No VTE Prior VTE?: No VTE Risk Level:: Medical - moderate - high VTE Device Contraindication: N/A - Device Ordered VTE Drug Contraindication: N/A - Med Ordered
[2021-06-11] MEDS: Ketorolac Tromethamine 30 MG/ML VIAL 15 MG IVPUSH ×2 (14:25→21:19)
--- NOTE | 2021-06-11 14:48 | MHC.CM.PN ---
CM CONTACTED PT VIA CELL PHONE NUMBER LISTED [phone]. PT REPORTS HE LIVES ALONE AND IS INDEPENDENT WITH CARE PT DENIES USE OF DME OR HOME/COMMUNITY SERVICES PT REPORTS HIS PCP IS [facility] MICHELLE HOWEVER HE CURRENTLY DOES NOT HAVE HEALTH INSURANCE. HE REPORTS HE JUST STARTED A NEW JOB AND HIS INSURANCE WILL NOT BE ACTIVE UNTIL THE BEGINNING OF NEXT MONTH HE IS AGREEABLE TO A REFERRAL TO [facility] TO SEE IF HE IS ELIGIBLE FOR ANY COVERAGE AT THIS TIME CURRENT DC PLAN IS HOME WITH NO SERVICES PT WILL ARRANGE TRANSPORT
[2021-06-11 15:46] VITALS: BP 108/75; PULSE 71; RESP 18; TEMP 36.2; O2SAT 96
[2021-06-11] MEDS: HYDROmorphone HCl 0.5 MG/0.5 ML SYRINGE 1 MG IVPUSH ×2 (17:37→23:38)
[2021-06-11] MEDS: levoFLOXacin/D5W 500 MG/100 ML PIGGYBACK 100 MG IV (17:37)
[2021-06-11 18:11] VITALS: BP 130/88; PULSE 70; RESP 16; TEMP 35.7; O2SAT 97
--- NOTE | 2021-06-11 19:50 | PC.NURSE ---
Assumed care of pt at 1900. Pt endorses pain releif s/p med administration, states pain is at a tolerable level at this time. Pt resting in bed and in NAD, call light within reach, educated to call for assistance
[2021-06-11] MEDS: Enoxaparin Sodium 40 MG/0.4 ML SYRINGE SUBCUT (21:18)
[2021-06-11 23:25] VITALS: RESP 14
[2021-06-12] MEDS: Lactated Ringers 1,000 ML 100 ML IVCONT ×3 (00:41→18:59)
[2021-06-12 06:15] VITALS: RESP 16
--- NOTE | 2021-06-12 06:15 | PC.NURSE ---
Vital signs deferred to promote sleep hygiene. Prior to this shift pt was unable to sleep d/t uncontrolled pain. Even and non-labored resps noted, call light within reach
[2021-06-12] MEDS: HYDROmorphone HCl 0.5 MG/0.5 ML SYRINGE 1 MG IVPUSH (06:51)
[2021-06-12] MEDS: metroNIDAZOLE/NS 500 MG/100 ML PIGGYBACK 100 MG IV ×2 (06:52→13:55)
[2021-06-12 06:55] VITALS: BP 160/100; PULSE 81; RESP 18; O2SAT 97
--- NOTE | 2021-06-12 07:00 | PC.NURSE ---
Pt requesting PRN pain medication. Hydromorphone 1 mg (0.5 syringe x 2) brought to bedside per AUG order. Pt states he wants only half this dose. 0.5 mg administered as charted. Second 0.5 syringe returned to [facility] with JOSE ALFREDO Rabago as witness
--- NOTE | 2021-06-12 09:07 | PC.NURSE ---
pt seen by dr good is aware of plan of care. pt aq/o x 3 no sob/cody noted skin pink warm dry speakjs in full sentences.
[2021-06-12] MEDS: oxyCODONE HCl Immed Release 5 MG TABLET PO ×2 (09:24→13:55)
[2021-06-12] MEDS: Docusate Sodium 100 MG CAPSULE PO (09:24)
[2021-06-12] MEDS: Acetaminophen 325 MG TABLET 650 MG PO (09:25)
[2021-06-12 09:26] VITALS: BP 169/96; PULSE 87; RESP 18; O2SAT 100
[2021-06-12] MEDS: 0.9 % Sodium Chloride Flush 3 ML SYRINGE IVFLUSH ×2 (09:26→17:11)
[2021-06-12] MEDS: lisinopriL 20 MG TABLET PO (09:26)
[2021-06-12] MEDS: Ketorolac Tromethamine 30 MG/ML VIAL 15 MG IVPUSH (09:26)
[2021-06-12] MEDS: Atorvastatin Calcium 40 MG TABLET PO (09:27)
[2021-06-12] MEDS: cloNIDine HCL 0.2 MG TABLET PO ×2 (09:27→21:19)
--- NOTE | 2021-06-12 10:15 | P.PNGS_ITS ---
Subjective Subjective Date of Service: 06/12/21 Interval history: still with pain but says this is much improved no fever says he has been ambulating in his rook no other complaints Physical Exam Vital Signs: Vital Signs: Last Vital Signs Temp 96.3 F L 06/11/21 18:11 Pulse 87 06/12/21 09:26 Resp 18 06/12/21 09:26 BP 169/96 H 06/12/21 09:26 Pulse Ox 100 06/12/21 09:26 BMI result Body Mass Index 31.8 Const: General: comfortable and no acute distress Resp: Effort & Inspection: normal respiratory effort Cardio: Rate: regular rate GI: Other: tender on left side Palpation (GI): Soft to palpation, not firm and no guarding Objective Data Active Medications Acetaminophen (Acetaminophen 325 Mg Tablet) 650 mg PO Q6H PRN PRN Reason: Pain, Mild (Pain Scale 1-3) Last Admin: 06/12/21 09:25 Dose: 650 mg Documented by: MORA Atorvastatin Calcium (Atorvastatin Calcium 40 Mg Tablet) 40 mg PO DAILY [facility] Last Admin: 06/12/21 09:27 Dose: 40 mg Documented by: MORA Clonidine HCl (Clonidine Hcl 0.2 Mg Tablet) 0.2 mg PO BID [facility]; Protocol Last Admin: 06/12/21 09:27 Dose: 0.2 mg Documented by: MORA Docusate Sodium (Docusate Sodium 100 Mg Capsule) 100 mg PO DAILY PRN PRN Reason: Constipation Last Admin: 06/12/21 09:24 Dose: 100 mg Documented by: MORA Enoxaparin Sodium (Enoxaparin Sodium 40 Mg/0.4 Ml Syringe) 40 mg SUBCUT Q24H [facility] Last Admin: 06/11/21 21:18 Dose: 40 mg Documented by: MIRIAN Hydromorphone HCl (Hydromorphone Hcl 1 Mg/Ml Syringe) 1 mg IVPUSH Q3H PRN; Protocol PRN Reason: Pain, Severe (Pain Scale 7-10) Levofloxacin (Levaquin) 500 mg in 100 mls @ 100 mls/hr IV Q24H [facility] Last Infusion: 06/11/21 20:27 Dose: 0 mls/hr Documented by: MIRIAN Metronidazole (Flagyl) 500 mg in 100 mls @ 100 mls/hr IV Q8H [facility] Last Infusion: 06/12/21 08:00 Dose: 0 mls/hr Documented by: MORA Lactated Ringer's (Lr) 1,000 mls @ 100 mls/hr IVCONT .Q10H [facility] Last Admin: 06/12/21 00:41 Dose: 100 mls/hr Documented by: MIRIAN Ketorolac Tromethamine (Ketorolac Tromethamine 30 Mg/Ml Vial) 15 mg IVPUSH Q6H PRN PRN Reason: Pain, Severe (Pain Scale 7-10) Last Admin: 06/12/21 09:26 Dose: 15 mg Documented by: MORA Lisinopril (Lisinopril 20 Mg Tablet) 20 mg PO DAILY [facility]; Protocol Last Admin: 06/12/21 09:26 Dose: 20 mg Documented by: MORA Ondansetron HCl (Ondansetron Hcl 4 Mg/2 Ml Vial) 4 mg IVPUSH Q8H PRN PRN Reason: Nausea and Vomiting Last Admin: 06/11/21 10:14 Dose: 4 mg Documented by: CAMERON Oxycodone HCl (Oxycodone Hcl Immed Release 5 Mg Tablet) 5 mg PO Q4H PRN PRN Reason: Pain, Mild (Pain Scale 1-3) Last Admin: 06/12/21 09:24 Dose: 5 mg Documented by: MORA Pharmacy Consult (Consult Rx Perform Med Rec) 1 each MISCELLANE ONCE PRN PRN Reason: Consult order Sodium Chloride (0.9 % Sodium Chloride Flush 3 Ml Syringe) 3 ml IVFLUSH QSHIFT [facility] Last Admin: 06/12/21 09:26 Dose: 3 ml Documented by: MORA Labs CBC & Chem 7: 06/11/21 07:29 06/11/21 07:29 Microbiology Microbiology Results: Microbiology 06/10/21 14:36 Blood Culture - Preliminary Blood - Venous No growth after 24 hours. 06/10/21 14:37 Blood Culture - Preliminary Blood - Venous No growth after 24 hours. Procedures Date of Service Date of Service: 06/12/21 Progress Note: A&P Assessment and plan (1) Diverticulitis: Status: Acute Assessment and Plan: improving although slowly would keep on clear liquids continue IV abx ambulating he looks well and not toxic looking will follow pt is COVID positive Fall Risk Details Current Medications: Current Medications Acetaminophen (Acetaminophen 325 Mg Tablet) 650 mg PO Q6H PRN PRN Reason: Pain, Mild (Pain Scale 1-3) Last Admin: 06/12/21 09:25 Dose: 650 mg Documented by: Atorvastatin Calcium (Atorvastatin Calcium 40 Mg Tablet) 40 mg PO DAILY [facility] Last Admin: 06/12/21 09:27 Dose: 40 mg Documented by: Clonidine HCl (Clonidine Hcl 0.2 Mg Tablet) 0.2 mg PO BID [facility]; Protocol Last Admin: 06/12/21 09:27 Dose: 0.2 mg Documented by: Docusate Sodium (Docusate Sodium 100 Mg Capsule) 100 mg PO DAILY PRN PRN Reason: Constipation Last Admin: 06/12/21 09:24 Dose: 100 mg Documented by: Enoxaparin Sodium (Enoxaparin Sodium 40 Mg/0.4 Ml Syringe) 40 mg SUBCUT Q24H [facility] Last Admin: 06/11/21 21:18 Dose: 40 mg Documented by: Hydromorphone HCl (Hydromorphone Hcl 1 Mg/Ml Syringe) 1 mg IVPUSH Q3H PRN; Protocol PRN Reason: Pain, Severe (Pain Scale 7-10) Levofloxacin (Levaquin) 500 mg in 100 mls @ 100 mls/hr IV Q24H [facility] Last Infusion: 06/11/21 20:27 Dose: Infused Documented by: Metronidazole (Flagyl) 500 mg in 100 mls @ 100 mls/hr IV Q8H [facility] Last Infusion: 06/12/21 08:00 Dose: Infused Documented by: Lactated Ringer's (Lr) 1,000 mls @ 100 mls/hr IVCONT .Q10H [facility] Last Admin: 06/12/21 00:41 Dose: 100 mls/hr Documented by: Ketorolac Tromethamine (Ketorolac Tromethamine 30 Mg/Ml Vial) 15 mg IVPUSH Q6H PRN PRN Reason: Pain, Severe (Pain Scale 7-10) Last Admin: 06/12/21 09:26 Dose: 15 mg Documented by: Lisinopril (Lisinopril 20 Mg Tablet) 20 mg PO DAILY [facility]; Protocol Last Admin: 06/12/21 09:26 Dose: 20 mg Documented by: Ondansetron HCl (Ondansetron Hcl 4 Mg/2 Ml Vial) 4 mg IVPUSH Q8H PRN PRN Reason: Nausea and Vomiting Last Admin: 06/11/21 10:14 Dose: 4 mg Documented by: Oxycodone HCl (Oxycodone Hcl Immed Release 5 Mg Tablet) 5 mg PO Q4H PRN PRN Reason: Pain, Mild (Pain Scale 1-3) Last Admin: 06/12/21 09:24 Dose: 5 mg Documented by: Pharmacy Consult (Consult Rx Perform Med Rec) 1 each MISCELLANE ONCE PRN PRN Reason: Consult order Sodium Chloride (0.9 % Sodium Chloride Flush 3 Ml Syringe) 3 ml IVFLUSH QSHIFT [facility] Last Admin: 06/12/21 09:26 Dose: 3 ml Documented by: Time Spent With Patient Time: Total time spent is greater than 50% in coordination of care (as documented) at patient's floor/unit and/or counseling patient: Time with patient: 15 - 24 minutes Quality Stroke Does the patient have a stroke diagnosis?: No VTE Prior VTE?: No VTE Risk Level:: Medical - moderate - high VTE Device Contraindication: N/A - Device Ordered VTE Drug Contraindication: N/A - Med Ordered
--- NOTE | 2021-06-12 11:16 | P.PNIM_ITS ---
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 Pulse 87 06/12/21 09:26 Deirdre PelayoNew 4d Resp 18 06/12/21 09:26 BP 169/96 H 06/12/21 09:26 Pulse Ox 100 06/12/21 09:26 BMI result Body Mass Index 31.8 Appearing in no acute distress lung sounds are clear to auscultation heart regular rate rhythm, clear S1, S2 positive bowel sounds, abdomen is soft, LLQ tenderness especially with ambulation neuro patient is alert x3, no focal deficits Objective Data Active Medications Acetaminophen (Acetaminophen 325 Mg Tablet) 650 mg PO Q6H PRN PRN Reason: Pain, Mild (Pain Scale 1-3) Last Admin: 06/12/21 09:25 Dose: 650 mg Documented by: MORA Atorvastatin Calcium (Atorvastatin Calcium 40 Mg Tablet) 40 mg PO DAILY [facility] Last Admin: 06/12/21 09:27 Dose: 40 mg Documented by: MORA Clonidine HCl (Clonidine Hcl 0.2 Mg Tablet) 0.2 mg PO BID [facility]; Protocol Last Admin: 06/12/21 09:27 Dose: 0.2 mg Documented by: MORA Docusate Sodium (Docusate Sodium 100 Mg Capsule) 100 mg PO DAILY PRN PRN Reason: Constipation Last Admin: 06/12/21 09:24 Dose: 100 mg Documented by: MORA Enoxaparin Sodium (Enoxaparin Sodium 40 Mg/0.4 Ml Syringe) 40 mg SUBCUT Q24H [facility] Last Admin: 06/11/21 21:18 Dose: 40 mg Documented by: MIRIAN Hydromorphone HCl (Hydromorphone Hcl 1 Mg/Ml Syringe) 1 mg IVPUSH Q3H PRN; Protocol PRN Reason: Pain, Severe (Pain Scale 7-10) Levofloxacin (Levaquin) 500 mg in 100 mls @ 100 mls/hr IV Q24H [facility] Last Infusion: 06/11/21 20:27 Dose: 0 mls/hr Documented by: MIRIAN Metronidazole (Flagyl) 500 mg in 100 mls @ 100 mls/hr IV Q8H [facility] Last Infusion: 06/12/21 08:00 Dose: 0 mls/hr Documented by: MORA Lactated Ringer's (Lr) 1,000 mls @ 100 mls/hr IVCONT .Q10H [facility] Last Admin: 06/12/21 00:41 Dose: 100 mls/hr Documented by: MIRIAN Ketorolac Tromethamine (Ketorolac Tromethamine 30 Mg/Ml Vial) 15 mg IVPUSH Q6H PRN PRN Reason: Pain, Severe (Pain Scale 7-10) Last Admin: 06/12/21 09:26 Dose: 15 mg Documented by: MORA Lisinopril (Lisinopril 20 Mg Tablet) 20 mg PO DAILY [facility]; Protocol Last Admin: 06/12/21 09:26 Dose: 20 mg Documented by: MORA Ondansetron HCl (Ondansetron Hcl 4 Mg/2 Ml Vial) 4 mg IVPUSH Q8H PRN PRN Reason: Nausea and Vomiting Last Admin: 06/11/21 10:14 Dose: 4 mg Documented by: CAMERON Oxycodone HCl (Oxycodone Hcl Immed Release 5 Mg Tablet) 5 mg PO Q4H PRN PRN Reason: Pain, Mild (Pain Scale 1-3) Last Admin: 06/12/21 09:24 Dose: 5 mg Documented by: MORA Pharmacy Consult (Consult Rx Perform Med Rec) 1 each MISCELLANE ONCE PRN PRN Reason: Consult order Sodium Chloride (0.9 % Sodium Chloride Flush 3 Ml Syringe) 3 ml IVFLUSH QSHIFT [facility] Last Admin: 06/12/21 09:26 Dose: 3 ml Documented by: MORA Labs CBC & Chem 7: 06/11/21 07:29 06/11/21 07:29 Microbiology Microbiology Results: Microbiology 06/10/21 14:36 Blood Culture - Preliminary Blood - Venous No growth after 24 hours. 06/10/21 14:37 Blood Culture - Preliminary Blood - Venous No growth after 24 hours. Assessment and Plan (1) Diverticulitis: Status: Acute (2) COVID-19: Status: Acute Assessment and Plan: this is a 45-year-old male with history of hypertension, multiple bouts of diverticulitis, recent diagnosis of COVID-19 who presents to the emergency department with abdominal pain found to have recurrent colitis versus diverticulitis. Abdominal pain secondary to diverticulitis previous hx of diverticulitis continue Levaquin and flagyl General surg rec continuing ab Clear liquid diet for now COVID-19 .? Previously vaccinated with Moderna vaccine x2 Diagnosed 10 days ago, asymptomatic Hypertension.? Stable Continue home dose of lisinopril, clonidine Disposition.? Home tomorrow if medically stable DVT prophylaxis -Lovenox Code status- full code HCP - endorses his mother Maira attending-Dr. Covarrubias Quality Stroke Does the patient have a stroke diagnosis?: No VTE Prior VTE?: No VTE Risk Level:: Medical - moderate - high VTE Device Contraindication: N/A - Device Ordered VTE Drug Contraindication: N/A - Med Ordered
[2021-06-12] MEDS: HYDROmorphone HCl 1 MG/ML SYRINGE IVPUSH ×3 (11:33→19:39)
[2021-06-12] MEDS: ondansetron HCL 4 MG/2 ML VIAL IVPUSH (11:33)
[2021-06-12 13:45] VITALS: BP 117/81; PULSE 68; RESP 18; TEMP 35.9; O2SAT 97
[2021-06-12 17:03] VITALS: BP 143/89; PULSE 62; RESP 20; TEMP 36.1; O2SAT 98
[2021-06-12] MEDS: levoFLOXacin/D5W 500 MG/100 ML PIGGYBACK 100 MG IV (17:08)
[2021-06-12] MEDS: Enoxaparin Sodium 40 MG/0.4 ML SYRINGE SUBCUT (18:58)
[2021-06-13] VITALS (7 sets, daily range): BP systolic 136–181; BP diastolic 80–123; PULSE 66–74; RESP 16–20; TEMP 36.5–36.9; O2SAT 97–99
[2021-06-13] MEDS: HYDROmorphone HCl 1 MG/ML SYRINGE IVPUSH ×3 (00:07→21:20)
[2021-06-13] MEDS: 0.9 % Sodium Chloride Flush 3 ML SYRINGE IVFLUSH (00:08)
[2021-06-13] MEDS: metroNIDAZOLE/NS 500 MG/100 ML PIGGYBACK 100 MG IV ×4 (00:08→21:19)
[2021-06-13] MEDS: Ketorolac Tromethamine 30 MG/ML VIAL 15 MG IVPUSH (02:24)
[2021-06-13 07:26] LABS: Hematocrit 37.4 % (42.0-52.0); Mean Corpuscular HGB Conc 34.8 g/dl (31.0-36.0); Mean Corpuscular Hemoglobin 32.8 pg (27.0-33.0); Mean Corpuscular Volume 94.4 fL (80.0-98.0); Platelet Count 226 X10*3/uL (160-400); Red Blood Count 3.96 X10*6/uL (4.60-5.80); Red Cell Distribution Width 11.1 % (11.0-16.0); White Blood Count 5.7 X10*3/uL (4.8-10.8)
[2021-06-13 07:43] LABS: Anion Gap 11 (12-20); Blood Urea Nitrogen 6 mg/dL (9-16); Calcium 8.8 mg/dL (8.4-10.2); Carbon Dioxide 28 mmol/L (22-29); Chloride 101 mmol/L (96-108); Creatinine Clr Calc Pharmacy 146.8; Estimated Glomerular Filt Rate > 60; Glucose Random 91 mg/dL (60-115); Potassium 3.7 mmol/L (3.3-5.1); Sodium 136 mmol/L (135-145)
--- NOTE | 2021-06-13 08:57 | PM.PNGS ---
Subjective Subjective Date of Service: 06/13/21 Interval history: feels much better still has some pain on left but much improved says he wants to try more solid food Physical Exam Vital Signs: Vital Signs: Last Vital Signs Temp 97.0 F 06/12/21 17:03 Pulse 74 06/13/21 00:00 Resp 20 06/13/21 00:00 BP 136/80 06/13/21 00:00 Pulse Ox 98 06/12/21 17:03 BMI result Body Mass Index 31.8 Const: Other: looks well General: comfortable and no acute distress Resp: Effort & Inspection: normal respiratory effort Cardio: Rate: regular rate GI: Other: mildly tender left side Palpation (GI): Soft to palpation, not firm and no guarding Objective Data Active Medications Acetaminophen (Acetaminophen 325 Mg Tablet) 650 mg PO Q6H PRN PRN Reason: Pain, Mild (Pain Scale 1-3) Last Admin: 06/12/21 09:25 Dose: 650 mg Documented by: MORA Atorvastatin Calcium (Atorvastatin Calcium 40 Mg Tablet) 40 mg PO DAILY [facility] Last Admin: 06/12/21 09:27 Dose: 40 mg Documented by: MORA Clonidine HCl (Clonidine Hcl 0.2 Mg Tablet) 0.2 mg PO BID [facility]; Protocol Last Admin: 06/12/21 21:19 Dose: 0.2 mg Documented by: AMARA Docusate Sodium (Docusate Sodium 100 Mg Capsule) 100 mg PO DAILY PRN PRN Reason: Constipation Last Admin: 06/12/21 09:24 Dose: 100 mg Documented by: MORA Enoxaparin Sodium (Enoxaparin Sodium 40 Mg/0.4 Ml Syringe) 40 mg SUBCUT Q24H [facility] Last Admin: 06/12/21 18:58 Dose: 40 mg Documented by: AMARA Hydromorphone HCl (Hydromorphone Hcl 1 Mg/Ml Syringe) 1 mg IVPUSH Q3H PRN; Protocol PRN Reason: Pain, Severe (Pain Scale 7-10) Last Admin: 06/13/21 00:07 Dose: 1 mg Documented by: ROSEANNA Levofloxacin (Levaquin) 500 mg in 100 mls @ 100 mls/hr IV Q24H [facility] Last Infusion: 06/12/21 21:27 Dose: 0 mls/hr Documented by: AMARA Metronidazole (Flagyl) 500 mg in 100 mls @ 100 mls/hr IV Q8H [facility] Last Infusion: 06/13/21 03:12 Dose: 0 mls/hr Documented by: ROSEANNA Lactated Ringer's (Lr) 1,000 mls @ 100 mls/hr IVCONT .Q10H [facility] Last Admin: 06/12/21 18:59 Dose: 100 mls/hr Documented by: AMARA Ketorolac Tromethamine (Ketorolac Tromethamine 30 Mg/Ml Vial) 15 mg IVPUSH Q6H PRN PRN Reason: Pain, Severe (Pain Scale 7-10) Last Admin: 06/13/21 02:24 Dose: 15 mg Documented by: ROSEANNA Lisinopril (Lisinopril 20 Mg Tablet) 20 mg PO DAILY [facility]; Protocol Last Admin: 06/12/21 09:26 Dose: 20 mg Documented by: MORA Ondansetron HCl (Ondansetron Hcl 4 Mg/2 Ml Vial) 4 mg IVPUSH Q8H PRN PRN Reason: Nausea and Vomiting Last Admin: 06/12/21 11:33 Dose: 4 mg Documented by: MORA Oxycodone HCl (Oxycodone Hcl Immed Release 5 Mg Tablet) 5 mg PO Q4H PRN PRN Reason: Pain, Mild (Pain Scale 1-3) Last Admin: 06/12/21 13:55 Dose: 5 mg Documented by: MORA Pharmacy Consult (Consult Rx Perform Med Rec) 1 each MISCELLANE ONCE PRN PRN Reason: Consult order Sodium Chloride (0.9 % Sodium Chloride Flush 3 Ml Syringe) 3 ml IVFLUSH QSHIFT [facility] Last Admin: 06/13/21 00:08 Dose: 3 ml Documented by: ROSEANNA Labs CBC & Chem 7: 06/13/21 07:09 06/13/21 07:09 Labs: Laboratory Results - last 24 hr 06/13/21 06/13/21 07:09 07:09 MCV 94.4 MCH 32.8 MCHC 34.8 RDW 11.1 Plt Count 226 D MPV 9.0 L Absolute Nucleated RBC 0.000 Nucleated RBC % (auto) 0.0 Anion Gap 11 L Estim Creat Clear Calc 146.8 Estimated GFR > 60 Random Glucose 91 Calcium 8.8 D Microbiology Microbiology Results: Microbiology 06/10/21 14:36 Blood Culture - Preliminary Blood - Venous No growth after 48 hours. 06/10/21 14:37 Blood Culture - Preliminary Blood - Venous No growth after 48 hours. Procedures Date of Service Date of Service: 06/13/21 Progress Note: A&P Assessment and plan (1) Diverticulitis: Status: Acute Assessment and Plan: improving although slowly no leukocytosis no fever full liquids today continue IV abx Fall Risk Details Current Medications: Current Medications Acetaminophen (Acetaminophen 325 Mg Tablet) 650 mg PO Q6H PRN PRN Reason: Pain, Mild (Pain Scale 1-3) Last Admin: 06/12/21 09:25 Dose: 650 mg Documented by: Atorvastatin Calcium (Atorvastatin Calcium 40 Mg Tablet) 40 mg PO DAILY [facility] Last Admin: 06/12/21 09:27 Dose: 40 mg Documented by: Clonidine HCl (Clonidine Hcl 0.2 Mg Tablet) 0.2 mg PO BID [facility]; Protocol Last Admin: 06/12/21 21:19 Dose: 0.2 mg Documented by: Docusate Sodium (Docusate Sodium 100 Mg Capsule) 100 mg PO DAILY PRN PRN Reason: Constipation Last Admin: 06/12/21 09:24 Dose: 100 mg Documented by: Enoxaparin Sodium (Enoxaparin Sodium 40 Mg/0.4 Ml Syringe) 40 mg SUBCUT Q24H [facility] Last Admin: 06/12/21 18:58 Dose: 40 mg Documented by: Hydromorphone HCl (Hydromorphone Hcl 1 Mg/Ml Syringe) 1 mg IVPUSH Q3H PRN; Protocol PRN Reason: Pain, Severe (Pain Scale 7-10) Last Admin: 06/13/21 00:07 Dose: 1 mg Documented by: Levofloxacin (Levaquin) 500 mg in 100 mls @ 100 mls/hr IV Q24H [facility] Last Infusion: 06/12/21 21:27 Dose: Infused Documented by: Metronidazole (Flagyl) 500 mg in 100 mls @ 100 mls/hr IV Q8H [facility] Last Infusion: 06/13/21 03:12 Dose: Infused Documented by: Lactated Ringer's (Lr) 1,000 mls @ 100 mls/hr IVCONT .Q10H [facility] Last Admin: 06/12/21 18:59 Dose: 100 mls/hr Documented by: Ketorolac Tromethamine (Ketorolac Tromethamine 30 Mg/Ml Vial) 15 mg IVPUSH Q6H PRN PRN Reason: Pain, Severe (Pain Scale 7-10) Last Admin: 06/13/21 02:24 Dose: 15 mg Documented by: Lisinopril (Lisinopril 20 Mg Tablet) 20 mg PO DAILY [facility]; Protocol Last Admin: 06/12/21 09:26 Dose: 20 mg Documented by: Ondansetron HCl (Ondansetron Hcl 4 Mg/2 Ml Vial) 4 mg IVPUSH Q8H PRN PRN Reason: Nausea and Vomiting Last Admin: 06/12/21 11:33 Dose: 4 mg Documented by: Oxycodone HCl (Oxycodone Hcl Immed Release 5 Mg Tablet) 5 mg PO Q4H PRN PRN Reason: Pain, Mild (Pain Scale 1-3) Last Admin: 06/12/21 13:55 Dose: 5 mg Documented by: Pharmacy Consult (Consult Rx Perform Med Rec) 1 each MISCELLANE ONCE PRN PRN Reason: Consult order Sodium Chloride (0.9 % Sodium Chloride Flush 3 Ml Syringe) 3 ml IVFLUSH QSHIFT [facility] Last Admin: 06/13/21 00:08 Dose: 3 ml Documented by: Time Spent With Patient Time: Total time spent is greater than 50% in coordination of care (as documented) at patient's floor/unit and/or counseling patient: Time with patient: 15 - 24 minutes Quality Stroke Does the patient have a stroke diagnosis?: No VTE Prior VTE?: No VTE Risk Level:: Medical - moderate - high VTE Device Contraindication: N/A - Device Ordered VTE Drug Contraindication: N/A - Med Ordered
[2021-06-13] MEDS: Atorvastatin Calcium 40 MG TABLET PO (09:31)
[2021-06-13] MEDS: cloNIDine HCL 0.2 MG TABLET PO ×2 (09:32→21:21)
[2021-06-13] MEDS: lisinopriL 20 MG TABLET PO (09:32)
--- NOTE | 2021-06-13 09:34 | PC.NURSE ---
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 Heart sounds normal and lungs clear. Pt abd soft and non-tender. Pt self and stable ambulatory. MD Hewitt at bedside for rounds and stated to this RN that IV fluids will be D/C. Communication order carried out. IV ABT continued.
--- NOTE | 2021-06-13 12:21 | HO.PM.IMPN ---
Subjective Subjective Date of Service: 06/14/21 Review of Systems Still some left lower quadrant tenderness especially with ambulation Eating and drinking okay with no issue Denies nausea, vomiting, diarrhea or bloody stools Physical Exam Vital Signs: Vital Signs: Last Vital Signs Temp 97.8 F 06/13/21 08:00 Pulse 66 06/13/21 10:51 Resp 18 06/13/21 08:00 BP 158/97 H 06/13/21 10:51 Pulse Ox 97 06/13/21 08:00 BMI result Body Mass Index 31.8 Appearing in no acute distress lung sounds are clear to auscultation heart regular rate rhythm, clear S1, S2 positive bowel sounds, abdomen is soft, mild LLQ tenderness neuro patient is alert x3, no focal deficits Objective Data Active Medications Acetaminophen (Acetaminophen 325 Mg Tablet) 650 mg PO Q6H PRN PRN Reason: Pain, Mild (Pain Scale 1-3) Last Admin: 06/12/21 09:25 Dose: 650 mg Documented by: MORA Atorvastatin Calcium (Atorvastatin Calcium 40 Mg Tablet) 40 mg PO DAILY [facility] Last Admin: 06/13/21 09:31 Dose: 40 mg Documented by: DONNA Clonidine HCl (Clonidine Hcl 0.2 Mg Tablet) 0.2 mg PO BID [facility]; Protocol Last Admin: 06/13/21 09:32 Dose: 0.2 mg Documented by: DONNA Docusate Sodium (Docusate Sodium 100 Mg Capsule) 100 mg PO DAILY PRN PRN Reason: Constipation Last Admin: 06/12/21 09:24 Dose: 100 mg Documented by: MORA Enoxaparin Sodium (Enoxaparin Sodium 40 Mg/0.4 Ml Syringe) 40 mg SUBCUT Q24H [facility] Last Admin: 06/12/21 18:58 Dose: 40 mg Documented by: AMARA Hydromorphone HCl (Hydromorphone Hcl 1 Mg/Ml Syringe) 1 mg IVPUSH Q3H PRN; Protocol PRN Reason: Pain, Severe (Pain Scale 7-10) Last Admin: 06/13/21 00:07 Dose: 1 mg Documented by: ROSEANNA Levofloxacin (Levaquin) 500 mg in 100 mls @ 100 mls/hr IV Q24H [facility] Last Infusion: 06/12/21 21:27 Dose: 0 mls/hr Documented by: AMARA Metronidazole (Flagyl) 500 mg in 100 mls @ 100 mls/hr IV Q8H [facility] Last Infusion: 06/13/21 10:44 Dose: 0 mls/hr Documented by: DONNA Ketorolac Tromethamine (Ketorolac Tromethamine 30 Mg/Ml Vial) 15 mg IVPUSH Q6H PRN PRN Reason: Pain, Severe (Pain Scale 7-10) Last Admin: 06/13/21 02:24 Dose: 15 mg Documented by: ROSEANNA Lisinopril (Lisinopril 20 Mg Tablet) 20 mg PO DAILY [facility]; Protocol Last Admin: 06/13/21 09:32 Dose: 20 mg Documented by: DONNA Ondansetron HCl (Ondansetron Hcl 4 Mg/2 Ml Vial) 4 mg IVPUSH Q8H PRN PRN Reason: Nausea and Vomiting Last Admin: 06/12/21 11:33 Dose: 4 mg Documented by: MORA Oxycodone HCl (Oxycodone Hcl Immed Release 5 Mg Tablet) 5 mg PO Q4H PRN PRN Reason: Pain, Mild (Pain Scale 1-3) Last Admin: 06/12/21 13:55 Dose: 5 mg Documented by: MORA Pharmacy Consult (Consult Rx Perform Med Rec) 1 each MISCELLANE ONCE PRN PRN Reason: Consult order Sodium Chloride (0.9 % Sodium Chloride Flush 3 Ml Syringe) 3 ml IVFLUSH QSHIFT [facility] Last Admin: 06/13/21 09:31 Dose: Not Given Documented by: DONNA Non-Admin Reason: Med Not Available Labs CBC & Chem 7: 06/13/21 07:09 06/13/21 07:09 Labs: Laboratory Results - last 24 hr 06/13/21 06/13/21 07:09 07:09 MCV 94.4 MCH 32.8 MCHC 34.8 RDW 11.1 Plt Count 226 D MPV 9.0 L Absolute Nucleated RBC 0.000 Nucleated RBC % (auto) 0.0 Anion Gap 11 L Estim Creat Clear Calc 146.8 Estimated GFR > 60 Random Glucose 91 Calcium 8.8 D Microbiology Microbiology Results: Microbiology 06/10/21 14:36 Blood Culture - Preliminary Blood - Venous No growth after 48 hours. 06/10/21 14:37 Blood Culture - Preliminary Blood - Venous No growth after 48 hours. Assessment and Plan (1) H/O: HTN (hypertension): Status: Acute (2) Diverticulitis: Status: Acute Assessment and Plan: this is a 45-year-old male with history of hypertension, multiple bouts of diverticulitis, recent diagnosis of COVID-19 who presents to the emergency department with abdominal pain found to have recurrent colitis versus diverticulitis. Abdominal pain secondary to diverticulitis. improving slowly previous hx of diverticulitis continue Levaquin and flagyl General surg rec continuing ab advance diet to regular COVID-19 .? Previously vaccinated with Moderna vaccine x2 Diagnosed 10 days ago, asymptomatic Hypertension.? Stable Continue home dose of lisinopril, clonidine Disposition.? Home tomorrow if medically stable DVT prophylaxis -Lovenox Code status- full code HCP - endorses his mother Maira attending-Dr. Mueller Quality Stroke Does the patient have a stroke diagnosis?: No VTE Prior VTE?: No VTE Risk Level:: Medical - moderate - high VTE Device Contraindication: N/A - Device Ordered VTE Drug Contraindication: N/A - Med Ordered
--- NOTE | 2021-06-13 16:37 | PM.DS ---
DS: Providers Provider Date of Service: 06/14/21 Date of admission: 06/10/21 16:59 Primary care physician: Will Larios MD Consults: 06/10/21 16:59 Consult to General Surgery Routine Consulting Provider: Errol Grijalva Reason for consultation: abdominal pain; ?recurrent diverticulitis Attending physician on discharge: Ned Mueller Discharging clinician: Adalgisa Hewitt DS: Diagnosis Discharge Diagnosis (1) Diverticulitis: Status: Acute (2) COVID-19: Status: Acute DS: Summary Hospital Course Hospital Course: HP as per admitting provider This is a 45-year-old male with history of hypertension, recently diagnosed with COVID-19 who presents the emergency department with abdominal pain. ? He states he tested positive for COVID-19 approximately week and half ago, he has so far been asymptomatic. ? He? has been having left lower quadrant abdominal pain for the past 3 days.? He has no associated nausea, vomiting, diarrhea.? He has history of diverticulitis in the past.? His pain is consistent with his previous episodes of diverticulitis.? He has been attempting to control his symptoms with a liquid diet.? He denies any associated fever or chills.? His symptoms persisted today and his pain is more severe than any previous bout of diverticulitis in the past and this prompted him to come to the hospital for further evaluation.? He is afebrile.? Lab work is unremarkable with no evidence of leukocytosis.? CT scan of the abdomen shows wall thickening and edema of the distal left colon, extensive stranding of the surrounding fat and small amount of fluid.? Diverticulitis and colitis should be considered.? No evidence of obstruction perforation or abscess.? It also showed nodular opacities at the lung bases which was nonspecific. ? He was treated with IV antibiotics and a decision was made to admit him to the hospital due to severe persistent abdominal pain. COVID-19 vaccination status-? received Moderna vaccine x2 . COVID-19. Essentially asymptomatic was given IV Decadron while inpatient however does not require further treatment with this as patient has not been hypoxic at all. Diverticulitis. Treated with IV Levaquin and Flagyl. Seen by General surgery, not requiring any surgical intervention. Diet was advanced from clear liquids to regular. Patient did well. At this point safe for discharge home to complete course of antibiotics and few days of pain medication. Hypertension. Elevated blood pressure. Likely some component of pain as well but trend seems to be that his diastolic blood pressure is elevated in combination with his lisinopril and clonidine will add 2.5 mg amlodipine. Time Spent with Patient Time attestation: Total time spent providing and/or coordinating discharge services: Discharge coordination time: Greater than 30 minutes Quality: Stroke Does the patient have a stroke diagnosis?: No Physical Exam Vital Signs: Vital Signs: Last Vital Signs Temp 98.4 F 06/13/21 15:56 Pulse 69 06/13/21 15:56 Resp 16 06/13/21 15:56 BP 142/98 H 06/13/21 15:56 Pulse Ox 99 06/13/21 15:56 BMI result Body Mass Index 31.8 Appearing in no acute distress head is normocephalic atraumatic eyes pupils are PERRLA sclera is anicteric mouth throat mucous membranes are intact and moist neck is supple no lymphadenopathy, no JVD noted lung sounds are clear to auscultation heart regular rate rhythm, clear S1, S2 positive bowel sounds, abdomen is soft, nontender neuro patient is alert x3, no focal deficits DS: Data Data Completed and Pending Labs on day of discharge: Laboratory Results - last 24 hr 06/13/21 06/13/21 07:09 07:09 WBC 5.7 RBC 3.96 L Hgb 13.0 L Hct 37.4 L MCV 94.4 MCH 32.8 MCHC 34.8 RDW 11.1 Plt Count 226 D MPV 9.0 L Absolute Nucleated RBC 0.000 Nucleated RBC % (auto) 0.0 Sodium 136 Potassium 3.7 Chloride 101 Carbon Dioxide 28 Anion Gap 11 L BUN 6 L Creatinine 0.81 Estim Creat Clear Calc 146.8 Estimated GFR > 60 Random Glucose 91 Calcium 8.8 D Preliminary micro results at discharge 06/10/21 14:36 Blood Culture - Preliminary Blood - Venous No growth after 48 hours. 06/10/21 14:37 Blood Culture - Preliminary Blood - Venous No growth after 48 hours. Discharge Plan Discharge Anticipated Discharge Date/Time: 06/13/21 17:17 Patient Disposition: Home, Self-Care Discharge Diagnosis: COVID-19 Diverticulitis Referrals: Will Larios MD [Primary Care Provider] - 1 Week Discharge Medications: New levofloxacin 500 mg tablet 500 mg PO DAILY Qty: 8 RF: 0 metronidazole 500 mg tablet 500 mg PO Q8H Qty: 24 RF: 0 oxycodone 5 mg tablet 5 mg PO QID PRN (Reason: pain) Qty: 12 RF: 0 amlodipine 2.5 mg Tablet 2.5 mg PO DAILY Qty: 30 RF: 0 Continued atorvastatin 40 mg tablet 1 tab PO DAILY RF: 0 Discontinued lisinopril 20 mg tablet 1 tab PO DAILY RF: 0 clonidine HCl 0.2 mg tablet 1 tab PO BID RF: 0 Discharge Orders: Discharge Order (Routine); Ordered 06/14/21 Ordered By: Adalgisa Hewitt Diet: advance to usual diet Activity on Discharge: As tolerated Stand Alone Forms: Patient Portal Discharge page Care Plan Goals: Resolution of diverticulitis symptoms Health Concerns: COVID-19 Diverticulitis Plan of Treatment: You will be sent home with antibiotics to complete, take as prescribed Assessment: see discharge summary
[2021-06-13] MEDS: levoFLOXacin/D5W 500 MG/100 ML PIGGYBACK 100 MG IV (18:20)
--- NOTE | 2021-06-13 20:10 | PC.NURSE ---
patient was checked on q2 hours by this pct .
[2021-06-13] MEDS: Enoxaparin Sodium 40 MG/0.4 ML SYRINGE SUBCUT (21:19)
[2021-06-14 05:32] VITALS: BP 180/112; PULSE 73; RESP 20; TEMP 36.7; O2SAT 95
[2021-06-14] MEDS: hydrALAZINE HCl 20 MG/ML VIAL 5 MG IVPUSH (06:04)
[2021-06-14] MEDS: HYDROmorphone HCl 1 MG/ML SYRINGE IVPUSH (06:06)
[2021-06-14] MEDS: metroNIDAZOLE/NS 500 MG/100 ML PIGGYBACK 100 MG IV (06:09)
[2021-06-14] MEDS: Atorvastatin Calcium 40 MG TABLET PO (07:28)
[2021-06-14] MEDS: cloNIDine HCL 0.2 MG TABLET PO (07:28)
[2021-06-14] MEDS: lisinopriL 20 MG TABLET PO (07:28)
--- NOTE | 2021-06-14 08:43 | MHC.CM.PN ---
discharge plan - home today no services RN aware of plan.
--- NOTE | 2021-06-14 09:04 | P.PNGS_ITS ---
Subjective Subjective Date of Service: 06/16/21 Interval history: Continues to feel better Still with some tenderness to touch Pain much improved Tolerating diet He is worried about his hypertension Physical Exam Vital Signs: Vital Signs: Last Vital Signs Temp 98.0 F 06/14/21 05:32 Pulse 73 06/14/21 05:32 Resp 20 06/14/21 05:32 BP 180/112 H 06/14/21 05:32 Pulse Ox 95 06/14/21 05:32 BMI result Body Mass Index 31.8 Const: General: comfortable and no acute distress Resp: Effort & Inspection: normal respiratory effort Cardio: Rhythm: regular rhythm GI: Other: Mild tenderness left side, no guarding rebound Palpation (GI): Soft to palpation Objective Data Active Medications Acetaminophen (Acetaminophen 325 Mg Tablet) 650 mg PO Q6H PRN PRN Reason: Pain, Mild (Pain Scale 1-3) Last Admin: 06/12/21 09:25 Dose: 650 mg Documented by: MORA Atorvastatin Calcium (Atorvastatin Calcium 40 Mg Tablet) 40 mg PO DAILY [facility] Last Admin: 06/14/21 07:28 Dose: 40 mg Documented by: JULIET Clonidine HCl (Clonidine Hcl 0.2 Mg Tablet) 0.2 mg PO BID [facility]; Protocol Last Admin: 06/14/21 07:28 Dose: 0.2 mg Documented by: JULIET Docusate Sodium (Docusate Sodium 100 Mg Capsule) 100 mg PO DAILY PRN PRN Reason: Constipation Last Admin: 06/12/21 09:24 Dose: 100 mg Documented by: MORA Enoxaparin Sodium (Enoxaparin Sodium 40 Mg/0.4 Ml Syringe) 40 mg SUBCUT Q24H [facility] Last Admin: 06/13/21 21:19 Dose: 40 mg Documented by: JEANNE Hydromorphone HCl (Hydromorphone Hcl 1 Mg/Ml Syringe) 1 mg IVPUSH Q3H PRN; Protocol PRN Reason: Pain, Severe (Pain Scale 7-10) Last Admin: 06/14/21 06:06 Dose: 1 mg Documented by: MIRIAN Levofloxacin (Levaquin) 500 mg in 100 mls @ 100 mls/hr IV Q24H [facility] Last Admin: 06/13/21 18:20 Dose: 100 mls/hr Documented by: DONNA Metronidazole (Flagyl) 500 mg in 100 mls @ 100 mls/hr IV Q8H [facility] Last Infusion: 06/14/21 07:30 Dose: 0 mls/hr Documented by: JULIET Ketorolac Tromethamine (Ketorolac Tromethamine 30 Mg/Ml Vial) 15 mg IVPUSH Q6H PRN PRN Reason: Pain, Severe (Pain Scale 7-10) Last Admin: 06/13/21 02:24 Dose: 15 mg Documented by: ROSEANNA Lisinopril (Lisinopril 20 Mg Tablet) 20 mg PO DAILY [facility]; Protocol Last Admin: 06/14/21 07:28 Dose: 20 mg Documented by: JULIET Ondansetron HCl (Ondansetron Hcl 4 Mg/2 Ml Vial) 4 mg IVPUSH Q8H PRN PRN Reason: Nausea and Vomiting Last Admin: 06/12/21 11:33 Dose: 4 mg Documented by: MORA Oxycodone HCl (Oxycodone Hcl Immed Release 5 Mg Tablet) 5 mg PO Q4H PRN PRN Reason: Pain, Mild (Pain Scale 1-3) Last Admin: 06/12/21 13:55 Dose: 5 mg Documented by: MORA Pharmacy Consult (Consult Rx Perform Med Rec) 1 each MISCELLANE ONCE PRN PRN Reason: Consult order Sodium Chloride (0.9 % Sodium Chloride Flush 3 Ml Syringe) 3 ml IVFLUSH QSHIFT [facility] Last Admin: 06/14/21 07:05 Dose: Not Given Documented by: JULIET Non-Admin Reason: Med Not Available Labs CBC & Chem 7: 06/13/21 07:09 06/13/21 07:09 Procedures Date of Service Date of Service: 06/14/21 Progress Note: A&P Assessment and plan (1) Diverticulitis: Status: Acute Assessment and Plan: Low residue diet Continue antibiotics - may switch to p.o. Will need colonoscopy down the line BP control If he remains well with oral intake today, may be discharged later Fall Risk Details Current Medications: Current Medications Acetaminophen (Acetaminophen 325 Mg Tablet) 650 mg PO Q6H PRN PRN Reason: Pain, Mild (Pain Scale 1-3) Last Admin: 06/12/21 09:25 Dose: 650 mg Documented by: Atorvastatin Calcium (Atorvastatin Calcium 40 Mg Tablet) 40 mg PO DAILY [facility] Last Admin: 06/14/21 07:28 Dose: 40 mg Documented by: Clonidine HCl (Clonidine Hcl 0.2 Mg Tablet) 0.2 mg PO BID [facility]; Protocol Last Admin: 06/14/21 07:28 Dose: 0.2 mg Documented by: Docusate Sodium (Docusate Sodium 100 Mg Capsule) 100 mg PO DAILY PRN PRN Reason: Constipation Last Admin: 06/12/21 09:24 Dose: 100 mg Documented by: Enoxaparin Sodium (Enoxaparin Sodium 40 Mg/0.4 Ml Syringe) 40 mg SUBCUT Q24H [facility] Last Admin: 06/13/21 21:19 Dose: 40 mg Documented by: Hydromorphone HCl (Hydromorphone Hcl 1 Mg/Ml Syringe) 1 mg IVPUSH Q3H PRN; Protocol PRN Reason: Pain, Severe (Pain Scale 7-10) Last Admin: 06/14/21 06:06 Dose: 1 mg Documented by: Levofloxacin (Levaquin) 500 mg in 100 mls @ 100 mls/hr IV Q24H [facility] Last Admin: 06/13/21 18:20 Dose: 100 mls/hr Documented by: Metronidazole (Flagyl) 500 mg in 100 mls @ 100 mls/hr IV Q8H [facility] Last Infusion: 06/14/21 07:30 Dose: Infused Documented by: Ketorolac Tromethamine (Ketorolac Tromethamine 30 Mg/Ml Vial) 15 mg IVPUSH Q6H PRN PRN Reason: Pain, Severe (Pain Scale 7-10) Last Admin: 06/13/21 02:24 Dose: 15 mg Documented by: Lisinopril (Lisinopril 20 Mg Tablet) 20 mg PO DAILY [facility]; Protocol Last Admin: 06/14/21 07:28 Dose: 20 mg Documented by: Ondansetron HCl (Ondansetron Hcl 4 Mg/2 Ml Vial) 4 mg IVPUSH Q8H PRN PRN Reason: Nausea and Vomiting Last Admin: 06/12/21 11:33 Dose: 4 mg Documented by: Oxycodone HCl (Oxycodone Hcl Immed Release 5 Mg Tablet) 5 mg PO Q4H PRN PRN Reason: Pain, Mild (Pain Scale 1-3) Last Admin: 06/12/21 13:55 Dose: 5 mg Documented by: Pharmacy Consult (Consult Rx Perform Med Rec) 1 each MISCELLANE ONCE PRN PRN Reason: Consult order Sodium Chloride (0.9 % Sodium Chloride Flush 3 Ml Syringe) 3 ml IVFLUSH QSHIFT [facility] Last Admin: 06/14/21 07:05 Dose: Not Given Documented by: Time Spent With Patient Time: Total time spent is greater than 50% in coordination of care (as documented) at patient's floor/unit and/or counseling patient: Time with patient: 15 - 24 minutes Quality Stroke Does the patient have a stroke diagnosis?: No VTE Prior VTE?: No VTE Risk Level:: Medical - moderate - high VTE Device Contraindication: N/A - Device Ordered VTE Drug Contraindication: N/A - Med Ordered
[2021-06-14] MEDS: amLODIPine Besylate 2.5 MG TABLET PO (10:11)
== END 2021-06-14 12:05 | disposition home or self-care (01) | DRG 178 ==
LOC: HO.ED 16:13 → HO.EDOVER 17:10
PROVIDERS: Physician Assistant; Admitting Provider Physician Assistant Medical; Emergency Provider Emergency Medicine; PCP Internal Medicine; Visit Provider Nurse Practitioner Acute Care
DX: U07.1 COVID-19 (principal); K57.32 Diverticulitis of large intestine without perforation or abscess without bleeding; I10 Essential (primary) hypertension; Z79.899 Other long term (current) drug therapy
CPT/HCPCS: 36415; 74177; 80048; 80076; 81003; 83605; 83690; 83735; 85025; 85027; 87040; 87635; 96361; 96365; 96375; 96376; 99285; J1170; J1650; J1885; J1956; J2270; J2405; Q9967

== ENCOUNTER 2022-03-19 09:38 | Inpatient (IN) | payer SELFPAY ==
--- NOTE | ~2022-03-19 | CT_ITS ---
EXAMINATION: CT ABDOMEN AND PELVIS WITH CONTRAST CLINICAL INFORMATION: Left lower quadrant pain, rule out diverticulitis. COMPARISON: CT abdomen pelvis 06/10/2021 TECHNIQUE: Multidetector volumetric images were obtained from the superior aspect of the liver through the pubic symphysis following administration 85 mL of Omnipaque 350 intravenous contrast. Sagittal and coronal reformatted images were obtained on the technologist's workstation. Oral contrast: No This CT examination was performed using dose optimization techniques as appropriate, variously including the following: *Automated exposure control *Adjustment of mA and/or kV according to patient size (this includes techniques or standardized protocols for targeted exams where dose is matched to indication/reason for exam; i.e. extremities or head) *Use of iterative reconstruction technique DLP: 819 mGy-cm FINDINGS: LUNG BASES: Unremarkable. ABDOMINAL AND PELVIC WALL: Fat-containing umbilical hernia. LIVER AND BILIARY TREE: Hypoattenuating hepatic parenchyma compatible with hepatic steatosis. GALLBLADDER: Unremarkable. PANCREAS: Unremarkable. SPLEEN: Unremarkable. ADRENAL GLANDS: Unremarkable. KIDNEYS AND URETERS: Tiny subcentimeter right renal hypodensity too small to characterize. GASTROINTESTINAL TRACT: Small hiatal hernia. Colonic diverticulosis with equivocal sigmoid colonic wall thickening. No pericolonic inflammatory fat stranding. No organized fluid collection or extraluminal air. Normal appendix. VASCULAR: Unremarkable. LYMPH NODES/PERITONEUM: No lymphadenopathy. FREE FLUID: None. BLADDER: Unremarkable. PELVIC VISCERA: Unremarkable. OSSEOUS STRUCTURES: Unremarkable. CT/CT abdomen pelvis w IV con IMPRESSION: Colonic diverticulosis with equivocal sigmoid colonic wall thickening, equivocal for a mild uncomplicated sigmoid diverticulitis. No kaycee pericolonic inflammatory fat stranding. No organized fluid collection or extraluminal air. Hepatic steatosis.
[2022-03-19 09:45] VITALS: BP 162/112; PULSE 136; TEMP 36.4; O2SAT 95
--- NOTE | 2022-03-19 09:47 | ECG_ITS ---
Test Reason : TACHY Blood Pressure : / mmHG Vent. Rate : 134 BPM Atrial Rate : 134 BPM P-R Int : 152 ms QRS Dur : 094 ms QT Int : 312 ms P-R-T Axes : 060 053 020 degrees QTc Int : 465 ms Sinus tachycardia T wave abnormality, consider inferolateral ischemia Abnormal ECG No previous ECGs available Referred By: Generic ED Physician Electronically Signed By:WINTER MAHER MD
--- NOTE | 2022-03-19 10:27 | ED_ITS ---
HPI - Abdominal Pain General Chief Complaint: Abdominal Pain Stated Complaint: afib, diverticulitis flare up Time Seen by Provider: 03/19/22 10:18 Source: patient Mode of arrival: ambulatory Limitations: no limitations History of Present Illness HPI narrative: 46-year-old male with history of afib on xarelot, HTN, HLD, diverticulitis presents with left lower quadrant abdominal pain for last 2 days. Patient also said chills. No fevers, nausea, vomiting, diarrhea, constipation, urinary symptoms. History of diverticulitis as feels similar. Has had 4 previous episodes. Related Data Home Medications Medication Instructions Recorded Confirmed atorvastatin 40 mg tablet 1 tab PO DAILY 06/10/21 03/19/22 diltiazem HCl 240 mg 1 cap PO DAILY 03/19/22 03/19/22 capsule,extended release 24 hr lisinopril 20 mg tablet 1 tab PO BEDTIME 03/19/22 03/19/22 rivaroxaban 20 mg tablet (Xarelto) 1 tab PO BEDTIME 03/19/22 03/19/22 Allergies Allergy/AdvReac Type Severity Reaction Status Date / Time No Known Allergies Allergy Verified 06/10/21 09:33 Review of Systems Review of Systems Yes all other systems are reviewed and are negative Constitutional: Reports no additional constitutional complaints, Denies body ache(s), Reports chills, Denies fever(s), Denies headache(s) and Denies weakness Eyes: Reports no additional eye complaints and Denies change in vision Reports system reviewed and no additional complaints, except as documented, Denies dizziness, Denies headache(s), Denies nasal congestion, Denies nasal discharge and Denies neck pain Cardiovascular: Reports no additional cardiovascular complaints, Denies chest pain, Denies leg edema and Denies dyspnea Respiratory: Reports no additional respiratory complaints, Denies cough and Denies dyspnea Gastrointestinal: Reports no additional gastrointestinal complaints, Reports abdominal pain, Denies diarrhea, Denies nausea and Denies vomiting Genitourinary: Denies urinary incontinence Musculoskeletal: Reports no additional musculoskeletal complaints, Denies back pain, Denies arthralgias, Denies joint swelling, Denies neck pain, Denies numbness and Denies tingling Skin/Breast: Reports system reviewed and no additional complaints, except as docu and Denies rash Reports system reviewed and no additional complaints, except as documented, Denies dizziness, Denies headache(s), Denies numbness, Denies tingling and Denies weakness PMFSH Past Medical History Attestation statement: The following information was validated with the patient. Source: old records reviewed and nursing notes reviewed Medical History Diverticulitis HTN (hypertension) Family History Family History Other Diabetes Social History Social History Alcohol intake: current Patient Tobacco Use Status: Never used Tobacco Advance Directives: No Advance Directives Information Provided: No service: No Current occupational status: employed Physical Exam ED Vital Signs: Vital Signs - 24 hr 03/19/22 09:45 03/19/22 11:30 Temperature 97.5 F 98.3 F Pulse Rate 136 H 100 Respiratory Rate 12 Blood Pressure 162/112 H 141/94 H Pulse Oximetry 95 93 Oxygen Delivery Method Room Air Room Air BMI result Body Mass Index 33.7 Const General: cooperative, healthy appearing, comfortable and no acute distress Orientation/consciousness: patient oriented x3 Limitations: no limitations HENMT Head: Yes normal to inspection Ears: hearing grossly normal bilaterally Eyes General: appearance normal, both eyes and all related structures Pupils: Equal, round and reactive pupils present Neck Neck: Yes normal visual inspection, Yes full ROM and Yes no lymphadenopathy Chest Chest palpation & inspection: normal inspection of the chest Resp Effort & Inspection: normal respiratory effort Auscultation: clear to auscultation bilaterally Cardio Rate: tachycardic Rhythm: regular rhythm Peripheral pulses: Peripheral pulses 2+ throughout GI Inspection: Yes normal to inspection Palpation (GI): Tenderness to palpation present (GI) in the LLQ and with rebound tenderness and Guarding due to palpation present (GI) General: Yes no CVA tenderness Back/Spine/Pelvis Back: no CVA tenderness Skin General skin exam: no rashes or lesions noted Neuro General: patient oriented x3 and moves all extremities Cranial nerves: Yes Equal, round and reactive pupils present Cognition (Neuro): normal cognition Gait exam (Neuro): Normal gait present Course Course Course Narrative: 1400-CT shows uncomplicated diverticulitis. Patient had mildly elevated lactic acid. No leukocytosis or fever. Patient has required for rounds of IV narcotics for pain control. At this point I believe he needs admission for pain control. Call out to medicines discussed. Reevaluation(s) Reevaluation #1: [id number]-Dr Robert will admit MDM - Abdominal Pain MDM Narrative Medical decision making narrative: 46-year-old male with history of diverticulitis presents with 2 days of left lower quadrant abdominal pain with chills. On exam patient has left lower quadrant abdominal pain with rebound and guarding. Likely diverticulitis. Due to chills and significant tenderness consider underlying abscess or perforation. Patient will have labs, blood cultures, lactic acid, UA, COVID screen. Will need CT abdomen and pelvis. At this time infection suspected. Antibiotics ordered. Differential Diagnosis Differential diagnosis: Likely diverticulitis Medical Records Attestation: I reviewed the patient's medical records. Lab Data Attestation: I reviewed the patient's lab results. Result diagrams: 03/19/22 10:51 03/19/22 10:51 Labs: Lab Results 03/19/22 03/19/22 03/19/22 Range/Units 10:51 10:51 10:51 WBC 7.2 (4.8-10.8) X10*3/uL RBC 4.70 (4.60-5.80) X10*6/uL Hgb 15.2 (14.0-18.0) g/dl Hct 43.6 (42.0-52.0) % MCV 92.8 (80.0-98.0) fL MCH 32.3 (27.0-33.0) pg MCHC 34.9 (31.0-36.0) g/dl RDW 12.3 (11.0-16.0) % Plt Count 221 (160-400) X10*3/uL MPV 8.5 L (9.4-12.4) fL Immature Gran % (Auto) 0.1 (0.0-0.4) % Neut % (Auto) 59.8 (45-73) % Lymph % (Auto) 25.7 (20-40) % [place] % (Auto) 13.6 H (2-11) % Eos % (Auto) 0.1 (0-4) % Baso % (Auto) 0.7 (0-2) % Lymph # (Auto) 1.8 (1.2-4.9) X10*3/uL [place] # (Auto) 1.0 (0.1-1.2) X10*3/uL Eos # (Auto) 0.0 (0.0-0.4) X10*3/uL Baso # (Auto) 0.1 (0.0-0.2) X10*3/uL Abs Immat Gran (auto) 0.01 (0.00-0.03) X10*3/uL Absolute Neuts (auto) 4.3 (2.0-8.3) x10*3/uL Absolute Nucleated RBC 0.000 (0.0-0.012) X10*3/uL Nucleated RBC % (auto) 0.0 (0.0-0.2) /100WBC Sodium 139 (135-145) mmol/L Potassium 4.1 (3.3-5.1) mmol/L Chloride 101 (96-108) mmol/L Carbon Dioxide 23 (22-29) mmol/L Anion Gap 19 (12-20) BUN 6 L (9-16) mg/dL Creatinine 0.86 (0.5-1.4) mg/dL Estim Creat Clear Calc TNP Estimated GFR > 60 Random Glucose 107 (60-115) mg/dL Lactic Acid 2.6 H* (0.5-2.0) mmol/L Lactic Acid F/U @ 2Hr (0.5-2.0) mmol/L Calcium 9.0 (8.4-10.2) mg/dL Total Bilirubin 0.6 (0.0-1.0) mg/dL Direct Bilirubin 0.3 (0.0-0.5) mg/dL AST 118 H (5-37) U/L ALT 113 H (0-40) U/L Alkaline Phosphatase 73 (39-117) U/L C-Reactive Protein 0.29 (< or = 0.50) mg/dL Total Protein 8.1 H (6.5-8.0) g/dL Albumin 5.1 H (3.5-5.0) g/dL Lipase 44 (8-78) U/L COVID-19 (COURT) (Negative) COVID-19 Clin Com 03/19/22 03/19/22 Range/Units 10:56 14:51 WBC (4.8-10.8) X10*3/uL RBC (4.60-5.80) X10*6/uL Hgb (14.0-18.0) g/dl Hct (42.0-52.0) % MCV (80.0-98.0) fL MCH (27.0-33.0) pg MCHC (31.0-36.0) g/dl RDW (11.0-16.0) % Plt Count (160-400) X10*3/uL MPV (9.4-12.4) fL Immature Gran % (Auto) (0.0-0.4) % Neut % (Auto) (45-73) % Lymph % (Auto) (20-40) % [place] % (Auto) (2-11) % Eos % (Auto) (0-4) % Baso % (Auto) (0-2) % Lymph # (Auto) (1.2-4.9) X10*3/uL [place] # (Auto) (0.1-1.2) X10*3/uL Eos # (Auto) (0.0-0.4) X10*3/uL Baso # (Auto) (0.0-0.2) X10*3/uL Abs Immat Gran (auto) (0.00-0.03) X10*3/uL Absolute Neuts (auto) (2.0-8.3) x10*3/uL Absolute Nucleated RBC (0.0-0.012) X10*3/uL Nucleated RBC % (auto) (0.0-0.2) /100WBC Sodium (135-145) mmol/L Potassium (3.3-5.1) mmol/L Chloride (96-108) mmol/L Carbon Dioxide (22-29) mmol/L Anion Gap (12-20) BUN (9-16) mg/dL Creatinine (0.5-1.4) mg/dL Estim Creat Clear Calc Estimated GFR Random Glucose (60-115) mg/dL Lactic Acid (0.5-2.0) mmol/L Lactic Acid F/U @ 2Hr 2.7 H* (0.5-2.0) mmol/L Calcium (8.4-10.2) mg/dL Total Bilirubin (0.0-1.0) mg/dL Direct Bilirubin (0.0-0.5) mg/dL AST (5-37) U/L ALT (0-40) U/L Alkaline Phosphatase (39-117) U/L C-Reactive Protein (< or = 0.50) mg/dL Total Protein (6.5-8.0) g/dL Albumin (3.5-5.0) g/dL Lipase (8-78) U/L COVID-19 (COURT) Negative (Negative) COVID-19 Clin Com See Note ECG Data Attestation: I personally reviewed and interpreted this ECG as follows: ECG interpretation date: 03/19/22 ECG interpretation time: 09:51 Interpretation: ST with rate 134, normal pr, normal qrs, qtc 465 Discharge Plan Discharge Clinical Impression: Diverticulitis, Elevated lactic acid level, Elevated liver enzymes Patient Disposition: Admitted As Inpatient
[2022-03-19 10:57] LABS: MANUAL DIFF FLAG NO
[2022-03-19 11:02] LABS: Basophils Absolute Auto 0.1 X10*3/uL (0.0-0.2); Basophils Percent Auto 0.7 % (0-2); Eosinophils Percent Auto 0.1 % (0-4); Hematocrit 43.6 % (42.0-52.0); Hemoglobin 15.2 g/dl (14.0-18.0); Imm Gran Abs Auto 0.01 X10*3/uL (0.00-0.03); Imm Gran Pct Auto 0.1 % (0.0-0.4); Lymphocytes Absolute Auto 1.8 X10*3/uL (1.2-4.9); Lymphocytes Percent Auto 25.7 % (20-40); Mean Corpuscular HGB Conc 34.9 g/dl (31.0-36.0); Mean Corpuscular Hemoglobin 32.3 pg (27.0-33.0); Mean Corpuscular Volume 92.8 fL (80.0-98.0); Mean Platelet Volume 8.5 fL (9.4-12.4); Monocytes Percent Auto 13.6 % (2-11); Neutrophils Absolute Auto 4.3 x10*3/uL (2.0-8.3); Neutrophils Percent Auto 59.8 % (45-73); Platelet Count 221 X10*3/uL (160-400); Red Cell Distribution Width 12.3 % (11.0-16.0); White Blood Count 7.2 X10*3/uL (4.8-10.8)
[2022-03-19] MEDS: Morphine Sulfate 4 MG/ML CARTRIDGE IVPUSH (11:08)
[2022-03-19] MEDS: levoFLOXacin/D5W 750 MG/150 ML PIGGYBACK 100 MG IV (11:09)
[2022-03-19] MEDS: ondansetron HCL 4 MG/2 ML VIAL IVPUSH ×2 (11:09→15:54)
[2022-03-19 11:21] LABS: Alanine Aminotransferase 113 U/L (0-40); Albumin Level 5.1 g/dL (3.5-5.0); Alkaline Phosphatase 73 U/L (39-117); Anion Gap 19 (12-20); Aspartate Amino Transferase 118 U/L (5-37); Bilirubin Direct 0.3 mg/dL (0.0-0.5); Bilirubin Total 0.6 mg/dL (0.0-1.0); Blood Urea Nitrogen 6 mg/dL (9-16); Carbon Dioxide 23 mmol/L (22-29); Chloride 101 mmol/L (96-108); Estimated Glomerular Filt Rate > 60; Glucose Random 107 mg/dL (60-115); Lipase 44 U/L (8-78); Potassium 4.1 mmol/L (3.3-5.1); Sodium 139 mmol/L (135-145); Total Protein 8.1 g/dL (6.5-8.0)
[2022-03-19 11:25] LABS: Lactic Acid 2.6 mmol/L (0.5-2.0)
[2022-03-19] MEDS: HYDROmorphone HCl 0.5 MG/0.5 ML SYRINGE IVPUSH (11:28)
[2022-03-19 11:30] VITALS: BP 141/94; PULSE 100; RESP 12; TEMP 36.8; O2SAT 93
[2022-03-19 11:31] LABS: COVID-19 Test Negative (Negative); IDNOW Serial# 16C4AD1C
[2022-03-19 11:32] VITALS: BMI 33.7
[2022-03-19] MEDS: HYDROmorphone HCl 1 MG/ML SYRINGE IVPUSH ×4 (12:21→21:36)
[2022-03-19] MEDS: iohexoL 350 MG/ML 100 ML INFUS..BTL 85 ML IV (12:49)
[2022-03-19 12:56] LABS: Reflex Lactate? Lactic Acid Added
[2022-03-19] MEDS: iohexoL 350 MG/ML 100 ML INFUS..BTL IV (12:59)
[2022-03-19] MEDS: 0.9 % Sodium Chloride 1,000 ML 999 ML IV (13:00)
[2022-03-19] MEDS: metroNIDAZOLE/NS 500 MG/100 ML PIGGYBACK 100 MG IV ×2 (13:00→21:37)
[2022-03-19] MEDS: HYDROmorphone HCl 2 MG/ML VIAL IVPUSH (13:27)
[2022-03-19 15:21] LABS: ~Lactic Acid-LAB USE ONLY 2.7 mmol/L (0.5-2.0)
[2022-03-19 15:48] LABS: C Reactive Protein 0.29 mg/dL (< or = 0.50)
--- NOTE | 2022-03-19 16:03 | PM.IMHP ---
History of Present Illness Date of Service: 03/19/22 Chief Complaint: abdominal pain 46yo M with AF s/p cardioversion and now on rivaroxaban, HTN, HLD, and 4 prior episodes of diverticulitis who presents with 2 days of worsening LLQ pain associated with chills and nausea. No fever. No vomiting. No diarrhea. He has not seen a GI in the past and has not had a colonoscopy. In the ED, CT scan showed sigmoid diverticulitis. HE was given 1L of IV normal saline plus metronidazole and levofloxacin. Lactic acid was 2.6. He had significant pain requiring a total of 4.5 mg of IV hydromorphone after 4 mg of IV morphine and thus admission was requested. Review of Systems Review of Systems: Yes all other systems are reviewed and are negative [facility] Medical History Diverticulitis HTN (hypertension) Family History Other Diabetes Social History Alcohol intake: current Patient Tobacco Use Status: Never used Tobacco Advance Directives: No Advance Directives Information Provided: No service: No Current occupational status: employed Meds Allergies Allergy/AdvReac Type Severity Reaction Status Date / Time No Known Allergies Allergy Verified 06/10/21 09:33 Active Medications: Current Medications Acetaminophen (Acetaminophen 325 Mg Tablet) 650 mg PO Q6H PRN PRN Reason: Pain, Mild (Pain Scale 1-3) Hydromorphone HCl (Hydromorphone Hcl 1 Mg/Ml Syringe) 1 mg IVPUSH Q4H PRN; Protocol PRN Reason: Pain, Severe (Pain Scale 7-10) Sodium Chloride (Ns) 1,000 mls @ 125 mls/hr IVCONT .Q8H MISHEL Ceftriaxone Sodium 1 gm/ (Sodium Chloride) 50 mls @ 100 mls/hr IV Q24H MISHEL Metronidazole (Flagyl) 500 mg in 100 mls @ 100 mls/hr IV Q8H [facility] Ondansetron HCl (Ondansetron Hcl 4 Mg/2 Ml Vial) 4 mg IVPUSH Q4H PRN PRN Reason: Nausea and Vomiting Pharmacy Consult (Consult Rx Perform Med Rec) 1 each MISCELLANE ONCE PRN PRN Reason: Consult order Pharmacy Consult (Consult Rx Perform Med Rec) 1 each MISCELLANE STAT STA Stop: 03/19/22 15:55 Sodium Chloride (0.9 % Sodium Chloride Flush 3 Ml Syringe) 3 ml IVFLUSH QSHIFT [facility] Home Medications Medication Instructions Recorded Confirmed Last Taken Type atorvastatin 40 mg tablet 1 tab PO DAILY 06/10/21 03/19/22 03/18/22 History diltiazem HCl 240 mg 1 cap PO DAILY 03/19/22 03/19/22 03/18/22 History capsule,extended release 24 hr lisinopril 20 mg tablet 1 tab PO BEDTIME 03/19/22 03/19/22 03/18/22 History rivaroxaban 20 mg tablet (Xarelto) 1 tab PO BEDTIME 03/19/22 03/19/22 03/18/22 History Physical Exam Vital Signs and Narrative: Vital Signs: Last Vital Signs Temp 98.3 F 03/19/22 11:30 Pulse 100 03/19/22 11:30 Resp 12 03/19/22 11:30 BP 141/94 H 03/19/22 11:30 Pulse Ox 93 03/19/22 11:30 O2 Del Method 03/19/22 11:30 BMI result Body Mass Index 33.7 Gen: nauseated, in pain HEENT: sclera anicteric, moist mucus membranes Neck: supple Lungs: clear to auscultation bilaterally Heart: regular, tachycardic, no murmurs Abd: soft, LLQ tender without rebound/guarding, non-distended Ext: no edema Skin: warm/well-perfused Neuro: alert and oriented x3, no focal findings Psych: appropriate affect Results Labs CBC and Chem 7: 03/19/22 10:51 03/19/22 10:51 Labs: Laboratory Results - last 24 hr 03/19/22 03/19/22 03/19/22 10:51 10:51 10:51 MCV 92.8 MCH 32.3 MCHC 34.9 RDW 12.3 Plt Count 221 MPV 8.5 L Immature Gran % (Auto) 0.1 Neut % (Auto) 59.8 Lymph % (Auto) 25.7 [place] % (Auto) 13.6 H Eos % (Auto) 0.1 Baso % (Auto) 0.7 Lymph # (Auto) 1.8 [place] # (Auto) 1.0 Eos # (Auto) 0.0 Baso # (Auto) 0.1 Abs Immat Gran (auto) 0.01 Absolute Neuts (auto) 4.3 Absolute Nucleated RBC 0.000 Nucleated RBC % (auto) 0.0 Anion Gap 19 Estim Creat Clear Calc TNP Estimated GFR > 60 Random Glucose 107 Lactic Acid 2.6 H* Lactic Acid F/U @ 2Hr Calcium 9.0 Total Bilirubin 0.6 Direct Bilirubin 0.3 AST 118 H ALT 113 H Alkaline Phosphatase 73 C-Reactive Protein 0.29 Total Protein 8.1 H Albumin 5.1 H Lipase 44 COVID-19 (COURT) COVID-19 [employer] Com 03/19/22 03/19/22 10:56 14:51 MCV MCH MCHC RDW Plt Count MPV Immature Gran % (Auto) Neut % (Auto) Lymph % (Auto) [place] % (Auto) Eos % (Auto) Baso % (Auto) Lymph # (Auto) [place] # (Auto) Eos # (Auto) Baso # (Auto) Abs Immat Gran (auto) Absolute Neuts (auto) Absolute Nucleated RBC Nucleated RBC % (auto) Anion Gap Estim Creat Clear Calc Estimated GFR Random Glucose Lactic Acid Lactic Acid F/U @ 2Hr 2.7 H* Calcium Total Bilirubin Direct Bilirubin AST ALT Alkaline Phosphatase C-Reactive Protein Total Protein Albumin Lipase COVID-19 (COURT) Negative COVID-19 Clin Com See Note Imaging Radiologist's Impressions: Impressions Abdomen/Pelvis CT 03/19/22 12:58 IMPRESSION: Colonic diverticulosis with equivocal sigmoid colonic wall thickening, equivocal for a mild uncomplicated sigmoid diverticulitis. No kaycee pericolonic inflammatory fat stranding. No organized fluid collection or extraluminal air. Hepatic steatosis. Assessment and Plan (1) Elevated lactic acid level: Status: Acute (2) Elevated liver enzymes: Status: Acute (3) Diverticulitis: Status: Acute Plan 46yo M with 4 prior episodes of diverticulitis presenting with his 5th episode, with lactic acidosis and significant pain requiring IV opioids. # acute diverticulitis - admit to M/S, NPO, fluid resuscitation, ceftriaxone + metronidazole, GI consultation # lactic acidosis - fluid resuscitation # transminasemia - pt has 5-7 servings of EtOH on weekends, none on weekdays; suspect related to this; recheck CMP in AM and screen for HBV/HCV # pAF - continue rivaroxaban - continue diltiazem # HTN - continue diltiazem + amlodipine # HLD - continue atorvastatin # excess EtOH intake - monitor for withdrawal, crisis intervention counselor reduction/cessation # VTE prophylaxis: rivaroxaban # code status: full I anticipate that the patient will stay at least 2 midnights in hospital due to the above reasons. It is neither reasonable nor safe to care for them in a less acute setting. Quality Stroke Does the patient have a stroke diagnosis?: No VTE Prior VTE?: No VTE Risk Level:: Medical - moderate - high VTE Device Contraindication: N/A - Device Ordered VTE Drug Contraindication: N/A - Med Ordered
[2022-03-19 16:05] VITALS: BP 154/101; PULSE 82; RESP 9; TEMP 5431.6; TEMP 9809; O2SAT 96
--- NOTE | 2022-03-19 16:06 | PC.NURSE ---
pt oxygen did drop down to 83 percent on room air. SERVICENOW ADMINISTRATOR DEVELOPER aware and pt put on 2Lnc of oxygen and o2 went up to 93 percent
--- NOTE | 2022-03-19 16:32 | PHA.MEDREC ---
Pharmacy Consult ? Medication Reconciliation Pharmacy has completed the medication reconciliation.
[2022-03-19 16:46] LABS: Appearance Urine Clear; Color Urine Yellow; Glucose Urine UA Negative (Negative); Leukocyte Esterase Urine Negative (Negative); Nitrite Urine Negative (Negative); Specific Gravity - Urine >= 1.030 (1.005-1.025); UMIC TRIGGER UACC YES; Urine Blood Negative (Negative); Urine Ketones Negative (Negative); Urine Protein 30 (1+) mg/dL (Neg-Trace)
[2022-03-19 16:47] LABS: Glucose, Whole Blood 105 mg/dL (60-115)
[2022-03-19 16:52] LABS: Bacteria Urine None Seen (None Seen); RBC Urine 0-2 /HPF (0-2); Squamous Epithelial Cell Urine 0-2 /HPF (0-2); WBC Urine 0-5 /HPF (0-5)
[2022-03-19 16:53] LABS: Reflex Lactate? 2 Y
[2022-03-19] MEDS: cefTRIAXone sodium 1 GM in 0.9 % Sodium Chloride 50 ML IV (17:28)
[2022-03-19] MEDS: 0.9 % Sodium Chloride 1,000 ML 125 ML IVCONT (17:29)
[2022-03-19] MEDS: 0.9 % Sodium Chloride Flush 3 ML SYRINGE IVFLUSH (17:29)
--- NOTE | 2022-03-19 18:24 | PC.NURSE ---
MD ODOM NOTIFIED OF CONITINUED LACTIC ACID ELEVATED RESULT
[2022-03-19 18:30] VITALS: PULSE 150; RESP 16
[2022-03-19 20:20] VITALS: BP 130/97; PULSE 135; RESP 16; O2SAT 93
--- NOTE | 2022-03-19 20:20 | PC.NURSE ---
SPOKE WITH HOSPITALIST RE: PTS HR NOW CONSISTENTLY IN 120S AT REST, INCREASING UP TO 170 WITH ANY ACTIVITY. PT DENIES CP, SOB. APPEARS RESTLESS, TO BE MEDICATED FOR ABD PAIN PER EMR. STATES HE WAS RECENTLY CARDIOVERTED AT THE [facility] FOLLOWING SEVERAL SYNCOPAL EPISODES AND NEW DX OF AFIB. APPEARS TO BE IN RAPID AFIB ON MONITOR AT THIS TIME.
[2022-03-19] MEDS: Metoprolol Tartrate 5 MG/5 ML VIAL IVPUSH (21:37)
[2022-03-19] MEDS: lisinopriL 20 MG TABLET PO (21:37)
[2022-03-19] MEDS: Rivaroxaban 20 MG TABLET PO (21:37)
[2022-03-19 21:52] VITALS: BP 143/97; PULSE 121; RESP 14; O2SAT 95
[2022-03-19] MEDS: Morphine Sulfate 2 MG/ML CARTRIDGE IVPUSH (23:56)
[2022-03-20] MEDS: 0.9 % Sodium Chloride 1,000 ML 125 ML IVCONT ×2 (00:38→08:56)
[2022-03-20 00:58] VITALS: BP 131/85; PULSE 116; RESP 11; O2SAT 96
--- NOTE | 2022-03-20 01:21 | PC.NURSE ---
Pt. lying in bed under no apparent distress. Pt. only complaint of pain is in the abdomen. IV fluids started per MAR at 125 mL/hour. Will continue to monitor.
--- NOTE | 2022-03-20 01:45 | PC.NURSE ---
Patient switched over to Hospital bed for comfort. Ambulatory in room without trouble gait steady
[2022-03-20] MEDS: HYDROmorphone HCl 1 MG/ML SYRINGE IVPUSH ×5 (02:08→21:27)
[2022-03-20] MEDS: metroNIDAZOLE/NS 500 MG/100 ML PIGGYBACK 100 MG IV ×3 (05:40→21:25)
--- NOTE | 2022-03-20 05:46 | PC.NURSE ---
Pt. resting in bed. Pt. states that he was able to get some sleep. Pt. reports pain relief with dilaudid, but that the relief doesn't last long. Will continue to monitor.
[2022-03-20 06:08] LABS: Hematocrit 39.8 % (42.0-52.0); Mean Corpuscular HGB Conc 35.2 g/dl (31.0-36.0); Mean Corpuscular Volume 93.9 fL (80.0-98.0); Mean Platelet Volume 8.7 fL (9.4-12.4); Platelet Count 193 X10*3/uL (160-400); Red Blood Count 4.24 X10*6/uL (4.60-5.80); Red Cell Distribution Width 12.2 % (11.0-16.0)
[2022-03-20 06:20] LABS: Lactic Acid 1.6 mmol/L (0.5-2.0)
[2022-03-20 06:38] LABS: Alanine Aminotransferase 92 U/L (0-40); Albumin Level 4.3 g/dL (3.5-5.0); Alkaline Phosphatase 66 U/L (39-117); Anion Gap 19 (12-20); Aspartate Amino Transferase 76 U/L (5-37); Bilirubin Total 1.5 mg/dL (0.0-1.0); Blood Urea Nitrogen 11 mg/dL (9-16); Calcium 8.1 mg/dL (8.4-10.2); Carbon Dioxide 23 mmol/L (22-29); Chloride 100 mmol/L (96-108); Creatinine Clr Calc Pharmacy 132.8; Estimated Glomerular Filt Rate > 60; Glucose Random 85 mg/dL (60-115); Sodium 138 mmol/L (135-145)
[2022-03-20 07:24] LABS: Glucose, Whole Blood 98 mg/dL (60-115)
[2022-03-20 07:40] VITALS: BP 138/100; PULSE 118; RESP 18; TEMP 36.4; O2SAT 98
[2022-03-20] MEDS: Atorvastatin Calcium 40 MG TABLET PO (08:10)
[2022-03-20 08:15] LABS: HBS Num1 2.53 mIU/mL (0-7.99); HBc Num1 0.09 S/CO (0.00-0.79); Hepatitis B Core Antibody Nonreactive (Nonreactive); Hepatitis B Surface Antigen Negative (Negative); ~Hepatitis B Surface Antibody NONREACTIVE (Nonreactive)
[2022-03-20 08:18] VITALS: BP 150/101; PULSE 102; RESP 18; O2SAT 95
[2022-03-20 08:20] LABS: ~HepC Num1 0.18 S/CO (0.00-0.79); ~Hepatitis C Antibody Nonreactive (Nonreactive)
--- NOTE | 2022-03-20 08:21 | PC.NURSE ---
Addendum entered by Stefany Zarate RN 03/20/22 08:52: Pt is alert and oriented x 4. Skin pink and warm. Pt's came in for diverticulitis, he reports pain 8/10, we are managing the pain with Dilaudid 1mp IVP. Patient states Dilaudid helps with pain but it doesn't last long, we talked about alternating Tylenol. BP 150/101 called pharmacy for Cardizem not available in [facility]. Pt HR is the 120s. his hr goes up with exertion, h in afib, pt reports no hx of afib Addendum entered by Thea Benito 03/20/22 08:44: Dilaudid 1mg IVP given for pain management. Original Note: pt alert and oriented x4. HR 120s. goes up with movement. pt reports pain 8/10 gave him dilated 1mg. we talked about taking alternating with tylenol. BP 150/101 gave him atorvastin. Patient says that dilated helps with pain but it is not long lasting.
[2022-03-20] MEDS: dilTIAZem HCL CD 240 MG CAP.ER.DEG PO (08:56)
--- NOTE | 2022-03-20 09:01 | PC.NURSE ---
Addendum entered by Stefany Zartae RN 03/20/22 08:52: Pt is alert and oriented x 4. Skin pink and warm. Pt's came in for diverticulitis, he reports pain /, we are managing the pain with Dilaudid 1mp IVP. Patient states Dilaudid helps with pain but it doesn't last long, we talked about alternating Tylenol. BP 150/101 called pharmacy for Cardizem not available in [facility]. Pt HR is the 120s. his hr goes up with exertion, h in afib, pt reports no hx of afib
[2022-03-20] MEDS: Acetaminophen 325 MG TABLET 650 MG PO (11:41)
--- NOTE | 2022-03-20 12:27 | HO.PM.IMPN ---
Subjective Subjective Date of Service: 03/20/22 Interval History: abd pain improved would like to try liquids PO no fever 1/2 BCx + for GPCs suspected contaminant Review of Systems Review of Systems: Yes all other systems are reviewed and are negative Physical Exam Vital Signs: Vital Signs: Last Vital Signs Temp 97.6 F 03/20/22 07:40 Pulse 102 H 03/20/22 08:18 Resp 18 03/20/22 08:18 BP 150/101 H 03/20/22 08:18 Pulse Ox 95 03/20/22 08:18 O2 Del Method 03/20/22 08:18 O2 Flow Rate 2 03/19/22 16:05 BMI result Body Mass Index 33.7 Gen: NAD HEENT: sclera anicteric, moist mucus membranes Neck: supple Lungs: clear to auscultation bilaterally Heart: regular, tachycardic, no murmurs Abd: soft, LLQ tender without rebound/guarding, non-distended Ext: no edema Skin: warm/well-perfused Neuro: alert and oriented x3, no focal findings Psych: appropriate affect Objective Data Active Medications Acetaminophen (Acetaminophen 325 Mg Tablet) 650 mg PO Q6H PRN PRN Reason: Pain, Mild (Pain Scale 1-3) Last Admin: 03/20/22 11:41 Dose: 650 mg Documented By: MARTIN Atorvastatin Calcium (Atorvastatin Calcium 40 Mg Tablet) 40 mg PO DAILY [facility] Last Admin: 03/20/22 08:10 Dose: 40 mg Documented By: ETHAN Diltiazem HCl (Diltiazem Hcl Cd 240 Mg Cap.Er.Deg) 240 mg PO DAILY [facility]; Protocol Last Admin: 03/20/22 08:56 Dose: 240 mg Documented By: YANDEL Hydromorphone HCl (Hydromorphone Hcl 1 Mg/Ml Syringe) 1 mg IVPUSH Q4H PRN; Protocol PRN Reason: Pain, Severe (Pain Scale 7-10) Last Admin: 03/20/22 08:10 Dose: 1 mg Documented By: ETHAN Sodium Chloride (Ns) 1,000 mls @ 125 mls/hr IVCONT .Q8H [facility] Last Admin: 03/20/22 08:56 Dose: 125 mls/hr Documented By: YANDEL Ceftriaxone Sodium 1 gm/ (Sodium Chloride) 50 mls @ 100 mls/hr IV Q24H [facility] Last Infusion: 03/19/22 18:25 Dose: 0 mls/hr Documented By: SWEETIE Metronidazole (Flagyl) 500 mg in 100 mls @ 100 mls/hr IV Q8H [facility] Last Admin: 03/20/22 11:42 Dose: 100 mls/hr Documented By: RIOSCCOCO Lisinopril (Lisinopril 20 Mg Tablet) 20 mg PO BEDTIME [facility]; Protocol Last Admin: 03/19/22 21:37 Dose: 20 mg Documented By: SWEETIE Ondansetron HCl (Ondansetron Hcl 4 Mg/2 Ml Vial) 4 mg IVPUSH Q4H PRN PRN Reason: Nausea and Vomiting Rivaroxaban (Rivaroxaban 20 Mg Tablet) 20 mg PO BEDTIME [facility] Last Admin: 03/19/22 21:37 Dose: 20 mg Documented By: SWEETIE Sodium Chloride (0.9 % Sodium Chloride Flush 3 Ml Syringe) 3 ml IVFLUSH QSHIFT [facility] Last Admin: 03/20/22 08:13 Dose: Not Given Documented By: ETHNA Non-Admin Reason: IV Running Labs CBC & Chem 7: 03/20/22 06:01 03/20/22 06:01 Labs: Laboratory Results - last 24 hr 03/19/22 03/19/22 03/19/22 10:51 14:51 16:00 MCV MCH MCHC RDW Plt Count MPV Absolute Nucleated RBC Nucleated RBC % (auto) Anion Gap Estim Creat Clear Calc Estimated GFR POC Glucose 105 Random Glucose Lactic Acid Lactic Acid F/U @ 2Hr 2.7 H* Lactic Acid F/U @ 4Hr Calcium Total Bilirubin AST ALT Alkaline Phosphatase C-Reactive Protein 0.29 Total Protein Albumin Urine Color Urine Appearance Urine pH Ur Specific [place] Urine Protein Urine Glucose (UA) Urine Ketones Urine Blood Urine Nitrite Ur Leukocyte Esterase Urine RBC Urine WBC Ur Squamous Epith Cells Urine Bacteria Hyaline Casts Hep Bs Antigen Hep Bs Antibody Hep B Core Total Ab Hepatitis C Ab (EIA) 03/19/22 03/19/22 03/20/22 16:39 18:01 06:01 MCV 93.9 MCH 33.0 MCHC 35.2 RDW 12.2 Plt Count 193 MPV 8.7 L Absolute Nucleated RBC 0.000 Nucleated RBC % (auto) 0.0 Anion Gap Estim Creat Clear Calc Estimated GFR POC Glucose Random Glucose Lactic Acid Lactic Acid F/U @ 2Hr Lactic Acid F/U @ 4Hr 3.0 H* Calcium Total Bilirubin AST ALT Alkaline Phosphatase C-Reactive Protein Total Protein Albumin Urine Color Yellow Urine Appearance Clear Urine pH 5.0 Ur Specific [place] >= 1.030 H Urine Protein 30 (1+) H Urine Glucose (UA) Negative Urine Ketones Negative Urine Blood Negative Urine Nitrite Negative Ur Leukocyte Esterase Negative Urine RBC 0-2 Urine WBC 0-5 Ur Squamous Epith Cells 0-2 Urine Bacteria None Seen Hyaline Casts 3-5 Hep Bs Antigen Hep Bs Antibody Hep B Core Total Ab Hepatitis C Ab (EIA) 03/20/22 03/20/22 03/20/22 06:01 06:01 06:01 MCV MCH MCHC RDW Plt Count MPV Absolute Nucleated RBC Nucleated RBC % (auto) Anion Gap 19 Estim Creat Clear Calc 132.8 Estimated GFR > 60 POC Glucose Random Glucose 85 Lactic Acid Lactic Acid F/U @ 2Hr Lactic Acid F/U @ 4Hr Calcium 8.1 L D Total Bilirubin 1.5 H AST 76 H ALT 92 H Alkaline Phosphatase 66 C-Reactive Protein Total Protein 7.0 Albumin 4.3 Urine Color Urine Appearance Urine pH Ur Specific [place] Urine Protein Urine Glucose (UA) Urine Ketones Urine Blood Urine Nitrite Ur Leukocyte Esterase Urine RBC Urine WBC Ur Squamous Epith Cells Urine Bacteria Hyaline Casts Hep Bs Antigen Negative Hep Bs Antibody NONREACTIVE Hep B Core Total Ab Nonreactive Hepatitis C Ab (EIA) Nonreactive 03/20/22 03/20/22 06:01 07:18 MCV MCH MCHC RDW Plt Count MPV Absolute Nucleated RBC Nucleated RBC % (auto) Anion Gap Estim Creat Clear Calc Estimated GFR POC Glucose 98 Random Glucose Lactic Acid 1.6 Lactic Acid F/U @ 2Hr Lactic Acid F/U @ 4Hr Calcium Total Bilirubin AST ALT Alkaline Phosphatase C-Reactive Protein Total Protein Albumin Urine Color Urine Appearance Urine pH Ur Specific [place] Urine Protein Urine Glucose (UA) Urine Ketones Urine Blood Urine Nitrite Ur Leukocyte Esterase Urine RBC Urine WBC Ur Squamous Epith Cells Urine Bacteria Hyaline Casts Hep Bs Antigen Hep Bs Antibody Hep B Core Total Ab Hepatitis C Ab (EIA) Microbiology Microbiology Results: Microbiology 03/19/22 11:03 Blood Culture - Preliminary Blood - Venous Prelim: GPC Gram Stain only Assessment and Plan (1) H/O: HTN (hypertension): Status: Acute (2) Diverticulitis: Status: Acute Plan d#2 46yo M with 4 prior episodes of diverticulitis presenting with his 5th episode, with lactic acidosis and significant pain requiring IV opioids. # acute diverticulitis - continue IV fluids, ceftriaxone + metronidazole d#2, GI consultation requested, clear liquid diet # lactic acidosis - fluid resuscitation # transminasemia - LFTs improved, supsect was related to excess EtOH intake # pAF - continue rivaroxaban - continue diltiazem # HTN - continue diltiazem + amlodipine # HLD - continue atorvastatin # excess EtOH intake - monitor for withdrawal, peer financial counselor reduction/cessation # VTE prophylaxis: rivaroxaban In my clinical judgment, the patient requires continued hospitalization for the following reasons: IV ABX Quality Stroke Does the patient have a stroke diagnosis?: No VTE Prior VTE?: No VTE Risk Level:: Medical - moderate - high VTE Device Contraindication: N/A - Device Ordered VTE Drug Contraindication: N/A - Med Ordered
--- NOTE | 2022-03-20 12:35 | MHC.CM.PN ---
met with pt who ese es with his parents pt is independent cm inbtervention is not indicated home no servceis
[2022-03-20] MEDS: cefTRIAXone sodium 1 GM in 0.9 % Sodium Chloride 50 ML IV (15:32)
[2022-03-20] MEDS: 0.9 % Sodium Chloride Flush 3 ML SYRINGE IVFLUSH (15:36)
[2022-03-20 16:00] VITALS: BP 133/75; PULSE 85; RESP 18; TEMP 36.1; O2SAT 95
[2022-03-20 20:00] VITALS: BP 127/64; PULSE 101; RESP 18; TEMP 36.2; O2SAT 97
[2022-03-20] MEDS: Rivaroxaban 20 MG TABLET PO (21:25)
[2022-03-20] MEDS: lisinopriL 20 MG TABLET PO (21:25)
[2022-03-20 23:44] VITALS: BP 112/79; PULSE 86; RESP 18; TEMP 36.4; O2SAT 97
[2022-03-21] MEDS: HYDROmorphone HCl 1 MG/ML SYRINGE IVPUSH ×3 (02:14→10:33)
[2022-03-21] MEDS: 0.9 % Sodium Chloride 1,000 ML 125 ML IVCONT ×3 (02:16→21:36)
--- NOTE | 2022-03-21 02:52 | CONS_ITS ---
DATE OF SERVICE: 03/20/2022 REFERRING PHYSICIAN: Erica Robert MD REASON FOR CONSULTATION: Diverticulitis. HISTORY OF PRESENT ILLNESS: Patient is a pleasant 46-year-old man who was admitted to the hospital yesterday after presenting to the emergency room with complaints of abdominal pain. He has a history of diverticulitis in the past and has had multiple episodes, with his last about 6 months ago and his first about 5 years ago, 1 episode may have had microperforation judging by his description. He developed abdominal pain the day before admission in the left lower quadrant typical as his prior episodes, he attempted to treat this with backing off on his diet to clear liquids, but proceeded to have worsening of symptoms with chills and nausea. There was no vomiting or diarrhea. He denies fever. In the emergency department, he was evaluated with laboratory studies including blood work showing a white blood cell count of 7.2. Chemistries were remarkable for an elevated lactic acid. CT scanning was obtained, which confirmed mild uncomplicated sigmoid diverticulosis. He has been started on antibiotics and reports some improvement and is starting clear liquids today. He has never undergone colonoscopy. PAST MEDICAL HISTORY: 1. Hypertension. 2. Hyperlipidemia. 3. Atrial fibrillation. 4. Diverticulitis. CURRENT MEDICATIONS: Current medication list is reviewed in the chart. He is on oral anticoagulation for his atrial fibrillation. ALLERGIES: THERE ARE NONE REPORTED. FAMILY HISTORY: This is reviewed with the patient and is noncontributory. SOCIAL HISTORY: There is no current substance abuse. REVIEW OF SYSTEMS: SKIN: No pruritus. HEENT: Negative. CARDIOPULMONARY: He denies shortness of breath or chest pain. GASTROINTESTINAL: As above. GENITOURINARY: Negative. NEUROPSYCHIATRIC: Negative. PHYSICAL EXAMINATION: GENERAL: Pleasant male, sitting comfortably in a chair watching [employer]. VITAL SIGNS: Reviewed in the electronic medical record and are stable. SKIN: Anicteric. HEENT: No scleral icterus. NECK: Without lymphadenopathy or thyromegaly. LUNGS: Clear. HEART: Irregular S1, S2. No murmur. ABDOMEN: Soft without focal masses. There is some mild left lower quadrant tenderness to palpation. Bowel sounds are present. No organomegaly is noted. EXTREMITIES: Without edema. LABORATORY DATA AND IMAGING STUDIES: Reviewed. IMPRESSION: Diverticulitis. This appears consistent with an episode of acute uncomplicated diverticulitis. I agree with present management. I did discuss the need with him to undergo colonoscopy in approximately 8-12 weeks and this will be arranged. At some point, consideration could be given to surgical consultation electively following his colonoscopy for consideration of sigmoid resection. We discussed this today. Thanks for asking me to see him. I will follow him in the hospital with you. MD LUWDIG Haines/SILVIO / [phone]
[2022-03-21 04:00] VITALS: BP 126/81; PULSE 96; RESP 14; TEMP 36.6; O2SAT 98
[2022-03-21] MEDS: metroNIDAZOLE/NS 500 MG/100 ML PIGGYBACK 100 MG IV ×3 (06:20→21:36)
[2022-03-21 07:24] LABS: Alanine Aminotransferase 69 U/L (0-40); Alkaline Phosphatase 56 U/L (39-117); Anion Gap 15 (12-20); Aspartate Amino Transferase 51 U/L (5-37); Bilirubin Total 1.1 mg/dL (0.0-1.0); Blood Urea Nitrogen 10 mg/dL (9-16); C Reactive Protein 0.75 mg/dL (< or = 0.50); Calcium 8.3 mg/dL (8.4-10.2); Carbon Dioxide 25 mmol/L (22-29); Chloride 103 mmol/L (96-108); Creatinine Clr Calc Pharmacy 129.7; Estimated Glomerular Filt Rate > 60; Glucose Random 103 mg/dL (60-115); Potassium 4.1 mmol/L (3.3-5.1); Sodium 139 mmol/L (135-145); Total Protein 6.3 g/dL (6.5-8.0)
[2022-03-21 07:26] VITALS: BP 136/98; PULSE 87; RESP 16; TEMP 36.4; O2SAT 96
[2022-03-21] MEDS: Atorvastatin Calcium 40 MG TABLET PO (07:34)
[2022-03-21] MEDS: Acetaminophen 325 MG TABLET 650 MG PO ×2 (07:34→14:11)
[2022-03-21] MEDS: dilTIAZem HCL CD 240 MG CAP.ER.DEG PO (07:34)
[2022-03-21 07:38] LABS: Glucose, Whole Blood 95 mg/dL (60-115)
[2022-03-21 11:02] VITALS: BP 124/87; PULSE 89; RESP 18; TEMP 36.6; O2SAT 97
[2022-03-21 11:15] LABS: Glucose, Whole Blood 160 mg/dL (60-115)
--- NOTE | 2022-03-21 13:43 | P.PNIM_ITS ---
Subjective Subjective Date of Service: 03/21/22 Interval History: LLQ pain improved, tolerating liquids Physical Exam Vital Signs: Vital Signs: Last Vital Signs Temp 97.9 F 03/21/22 11:02 Pulse 89 03/21/22 11:02 Resp 18 03/21/22 11:02 BP 124/87 03/21/22 11:02 Pulse Ox 97 03/21/22 11:02 O2 Del Method 03/21/22 11:02 O2 Flow Rate 2 03/19/22 16:05 BMI result Body Mass Index 33.7 Gen: NAD HEENT: sclera anicteric, moist mucus membranes Neck: supple Lungs: clear to auscultation bilaterally Heart: regular, tachycardic, no murmurs Abd: soft, LLQ tender without rebound/guarding, non-distended Ext: no edema Skin: warm/well-perfused Neuro: alert and oriented x3, no focal findings Psych: appropriate affect Objective Data Active Medications Acetaminophen (Acetaminophen 325 Mg Tablet) 650 mg PO Q6H PRN PRN Reason: Pain, Mild (Pain Scale 1-3) Last Admin: 03/21/22 07:34 Dose: 650 mg Documented By: MARTIN Atorvastatin Calcium (Atorvastatin Calcium 40 Mg Tablet) 40 mg PO DAILY [facility] Last Admin: 03/21/22 07:34 Dose: 40 mg Documented By: MARTIN Diltiazem HCl (Diltiazem Hcl Cd 240 Mg Cap.Er.Deg) 240 mg PO DAILY [facility]; Protocol Last Admin: 03/21/22 07:34 Dose: 240 mg Documented By: MARTIN Hydromorphone HCl (Hydromorphone Hcl 1 Mg/Ml Syringe) 1 mg IVPUSH Q4H PRN; Protocol PRN Reason: Pain, Severe (Pain Scale 7-10) Last Admin: 03/21/22 10:33 Dose: 1 mg Documented By: MARTIN Sodium Chloride (Ns) 1,000 mls @ 125 mls/hr IVCONT .Q8H [facility] Last Admin: 03/21/22 02:16 Dose: 125 mls/hr Documented By: MARCELLUS Ceftriaxone Sodium 1 gm/ (Sodium Chloride) 50 mls @ 100 mls/hr IV Q24H [facility] Last Infusion: 03/20/22 16:29 Dose: 0 mls/hr Documented By: MARTIN Metronidazole (Flagyl) 500 mg in 100 mls @ 100 mls/hr IV Q8H [facility] Last Infusion: 03/21/22 07:36 Dose: 0 mls/hr Documented By: MARTIN Lisinopril (Lisinopril 20 Mg Tablet) 20 mg PO BEDTIME [facility]; Protocol Last Admin: 03/20/22 21:25 Dose: 20 mg Documented By: MARCELLUS Ondansetron HCl (Ondansetron Hcl 4 Mg/2 Ml Vial) 4 mg IVPUSH Q4H PRN PRN Reason: Nausea and Vomiting Rivaroxaban (Rivaroxaban 20 Mg Tablet) 20 mg PO BEDTIME [facility] Last Admin: 03/20/22 21:25 Dose: 20 mg Documented By: MARCELLUS Sodium Chloride (0.9 % Sodium Chloride Flush 3 Ml Syringe) 3 ml IVFLUSH QSHIFT [facility] Last Admin: 03/21/22 10:26 Dose: Not Given Documented By: MARTIN Non-Admin Reason: IV Running Labs CBC & Chem 7: 03/20/22 06:01 03/21/22 06:42 Labs: Laboratory Results - last 24 hr 03/21/22 03/21/22 03/21/22 06:42 07:24 11:00 Anion Gap 15 Estim Creat Clear Calc 129.7 Estimated GFR > 60 POC Glucose 95 160 H Random Glucose 103 Calcium 8.3 L Total Bilirubin 1.1 H AST 51 H ALT 69 H Alkaline Phosphatase 56 C-Reactive Protein 0.75 H Total Protein 6.3 L Albumin 4.0 Microbiology Microbiology Results: Microbiology 03/19/22 11:03 Blood Culture - Preliminary Blood - Venous No growth after 48 hours. 03/19/22 11:03 Blood Culture - Final Blood - Venous Coag negative Staphylococcus Assessment and Plan (1) H/O: HTN (hypertension): Status: Acute (2) Diverticulitis: Status: Acute Plan d#3 46yo M with 4 prior episodes of diverticulitis presenting with his 5th episode, with lactic acidosis and significant pain requiring IV opioids. # acute diverticulitis - ceftriaxone + metronidazole d#3, GI consulted- outpt C-scope in 8-12 wk and consideration of sigmoid resection. trial of advancing diet # lactic acidosis - fluid resuscitation # transminasemia - LFTs improved, supsect was related to excess EtOH intake # pAF - continue rivaroxaban - continue diltiazem # HTN - continue diltiazem + amlodipine # HLD - continue atorvastatin # excess EtOH intake - monitor for withdrawal, marriage counselor reduction/cessation # VTE prophylaxis: rivaroxaban In my clinical judgment, the patient requires continued hospitalization for the following reasons: IV ABX Quality Stroke Does the patient have a stroke diagnosis?: No VTE Prior VTE?: No VTE Risk Level:: Medical - moderate - high VTE Device Contraindication: N/A - Device Ordered VTE Drug Contraindication: N/A - Med Ordered
[2022-03-21] MEDS: cefTRIAXone sodium 1 GM in 0.9 % Sodium Chloride 50 ML IV (15:28)
[2022-03-21] MEDS: 0.9 % Sodium Chloride Flush 3 ML SYRINGE IVFLUSH ×2 (15:31→21:36)
[2022-03-21 15:58] VITALS: BP 129/85; PULSE 88; RESP 20; TEMP 36.2; O2SAT 98
[2022-03-21 19:43] VITALS: BP 130/75; PULSE 92; RESP 18; TEMP 36.1; O2SAT 98
[2022-03-21] MEDS: lisinopriL 20 MG TABLET PO (21:35)
[2022-03-21] MEDS: Rivaroxaban 20 MG TABLET PO (21:35)
[2022-03-22] VITALS: BP 126/73; PULSE 93; RESP 20; TEMP 36.1; O2SAT 96
[2022-03-22 03:34] VITALS: BP 138/88; PULSE 80; RESP 20; TEMP 36.5; O2SAT 98
[2022-03-22] MEDS: 0.9 % Sodium Chloride 1,000 ML 125 ML IVCONT (05:30)
[2022-03-22] MEDS: metroNIDAZOLE/NS 500 MG/100 ML PIGGYBACK 100 MG IV (05:30)
[2022-03-22 07:07] VITALS: BP 127/73; PULSE 80; RESP 18; TEMP 36.1; O2SAT 98
[2022-03-22] MEDS: Atorvastatin Calcium 40 MG TABLET PO (09:43)
[2022-03-22] MEDS: 0.9 % Sodium Chloride Flush 3 ML SYRINGE IVFLUSH (09:44)
[2022-03-22] MEDS: dilTIAZem HCL CD 240 MG CAP.ER.DEG PO (09:44)
--- NOTE | 2022-03-22 09:53 | MHC.CM.PN ---
Addendum entered by Jessenia Villafana 03/22/22 12:01: Patient is discharged home self care. Family providing transport home. Original Note: Male 46 DX Diverticulitis He pedrito clear liquid diet yesterday. He has been advanced to a regular diet today. Pt may discharge today if he tolerates diet. CM will follow hospital course for discharge. DP home selfcare with family transport.
--- NOTE | 2022-03-22 11:17 | P.DS_ITS ---
DS: Providers Provider Date of Service: 03/22/22 Date of admission: 03/19/22 15:54 Date of discharge: 03/22/22 Primary care physician: Will Larios MD Consults: 03/19/22 15:58 Consult to Gastroenterology Routine Consulting Provider: [facility] Reason for consultation: diverticulitis #5 DS: Diagnosis Discharge Diagnosis (1) Diverticulitis: Status: Acute (2) Elevated lactic acid level: Status: Acute (3) Elevated liver enzymes: Status: Acute DS: Summary Hospital Course Hospital Course: from my admission history and physical, 03/19/22: 46yo M with AF s/p cardioversion and now on rivaroxaban, HTN, HLD, and 4 prior episodes of diverticulitis who presents with 2 days of worsening LLQ pain associated with chills and nausea.? No fever.? No vomiting.? No diarrhea.? He has not seen a GI in the past and has not had a colonoscopy. In the ED, CT scan showed sigmoid diverticulitis.? HE was given 1L of IV normal saline plus metronidazole and levofloxacin.? Lactic acid was 2.6.? He had significant pain requiring a total of 4.5 mg of IV hydromorphone after 4 mg of IV morphine and thus admission was requested. He was admitted to the hosiptalist service and given IV fluids, IV ceftriaxone, and IV metronidazole. Symptoms improved. Gastroenterology was consulted and outpatient colonoscopy in 8-12 weeks will be planned; consideration should also be given to elective sigmoid resection in the future. LFTs improved and were likely elevated due to excess alcohol intake, against which he was counseled. He was discharged home on 5 more days of antibiotics therapy using amoxicillin- clavulanate. Time Spent with Patient Time attestation: Total time spent providing and/or coordinating discharge services: 35 Discharge coordination time: Greater than 30 minutes Quality: Safe Use of Opioids Does Pt have an Active Cancer Diagnosis on the Problem List?: No Quality: Stroke Does the patient have a stroke diagnosis?: No Physical Exam Vital Signs: Vital Signs: Last Vital Signs Temp 97.0 F 03/22/22 07:07 Pulse 80 03/22/22 07:07 Resp 18 03/22/22 07:07 BP 127/73 03/22/22 07:07 Pulse Ox 98 03/22/22 07:07 O2 Del Method 03/22/22 07:07 O2 Flow Rate 2 03/19/22 16:05 BMI result Body Mass Index 33.7 Gen: in no acute distress HEENT: sclera anicteric, moist mucus membranes Neck: supple Lungs: clear to auscultation bilaterally Heart: regular rate and rhythm, no murmurs Abd: soft, non-tender, non-distended, obese Ext: no edema Skin: warm/well-perfused Neuro: alert and oriented x3, no focal findings Psych: appropriate affect DS: Data Data Completed and Pending Completed studies during hospitalization [Text1]: Laboratory Results WBC 6.0 X10*3/uL (4.8-10.8) 03/20/22 06:01 RBC 4.24 X10*6/uL (4.60-5.80) L 03/20/22 06:01 Hgb 14.0 g/dl (14.0-18.0) 03/20/22 06:01 Hct 39.8 % (42.0-52.0) L 03/20/22 06:01 MCV 93.9 fL (80.0-98.0) 03/20/22 06:01 MCH 33.0 pg (27.0-33.0) 03/20/22 06:01 MCHC 35.2 g/dl (31.0-36.0) 03/20/22 06:01 RDW 12.2 % (11.0-16.0) 03/20/22 06:01 Plt Count 193 X10*3/uL (160-400) 03/20/22 06:01 MPV 8.7 fL (9.4-12.4) L 03/20/22 06:01 Immature Gran % (Auto) 0.1 % (0.0-0.4) 03/19/22 10:51 Neut % (Auto) 59.8 % (45-73) 03/19/22 10:51 Lymph % (Auto) 25.7 % (20-40) 03/19/22 10:51 [place] % (Auto) 13.6 % (2-11) H 03/19/22 10:51 Eos % (Auto) 0.1 % (0-4) 03/19/22 10:51 Baso % (Auto) 0.7 % (0-2) 03/19/22 10:51 Lymph # (Auto) 1.8 X10*3/uL (1.2-4.9) 03/19/22 10:51 [place] # (Auto) 1.0 X10*3/uL (0.1-1.2) 03/19/22 10:51 Eos # (Auto) 0.0 X10*3/uL (0.0-0.4) 03/19/22 10:51 Baso # (Auto) 0.1 X10*3/uL (0.0-0.2) 03/19/22 10:51 Abs Immat Gran (auto) 0.01 X10*3/uL (0.00-0.03) 03/19/22 10:51 Absolute Neuts (auto) 4.3 x10*3/uL (2.0-8.3) 03/19/22 10:51 Absolute Nucleated RBC 0.000 X10*3/uL (0.0-0.012) 03/20/22 06:01 Nucleated RBC % (auto) 0.0 /100WBC (0.0-0.2) 03/20/22 06:01 Sodium 139 mmol/L (135-145) 03/21/22 06:42 Potassium 4.1 mmol/L (3.3-5.1) 03/21/22 06:42 Chloride 103 mmol/L (96-108) 03/21/22 06:42 Carbon Dioxide 25 mmol/L (22-29) 03/21/22 06:42 Anion Gap 15 (12-20) 03/21/22 06:42 BUN 10 mg/dL (9-16) 03/21/22 06:42 Creatinine 0.88 mg/dL (0.5-1.4) 03/21/22 06:42 Estim Creat Clear Calc 129.7 03/21/22 06:42 Estimated GFR > 60 03/21/22 06:42 POC Glucose 160 mg/dL (60-115) H 03/21/22 11:00 Random Glucose 103 mg/dL (60-115) 03/21/22 06:42 Lactic Acid 1.6 mmol/L (0.5-2.0) 03/20/22 06:01 Lactic Acid F/U @ 2Hr 2.7 mmol/L (0.5-2.0) H* 03/19/22 14:51 Lactic Acid F/U @ 4Hr 3.0 mmol/L (0.5-2.0) H* 03/19/22 18:01 Calcium 8.3 mg/dL (8.4-10.2) L 03/21/22 06:42 Total Bilirubin 1.1 mg/dL (0.0-1.0) H 03/21/22 06:42 Direct Bilirubin 0.3 mg/dL (0.0-0.5) 03/19/22 10:51 AST 51 U/L (5-37) H 03/21/22 06:42 ALT 69 U/L (0-40) H 03/21/22 06:42 Alkaline Phosphatase 56 U/L (39-117) 03/21/22 06:42 C-Reactive Protein 0.75 mg/dL (< or = 0.50) H 03/21/22 06:42 Total Protein 6.3 g/dL (6.5-8.0) L 03/21/22 06:42 Albumin 4.0 g/dL (3.5-5.0) 03/21/22 06:42 Lipase 44 U/L (8-78) 03/19/22 10:51 Urine Color Yellow 03/19/22 16:39 Urine Appearance Clear 03/19/22 16:39 Urine pH 5.0 (5.0-9.0) 03/19/22 16:39 Ur Specific [place] >= 1.030 (1.005-1.025) H 03/19/22 16:39 Urine Protein 30 (1+) mg/dL (Neg-Trace) H 03/19/22 16:39 Urine Glucose (UA) Negative mg/dL (Negative) 03/19/22 16:39 Urine Ketones Negative mg/dL (Negative) 03/19/22 16:39 Urine Blood Negative (Negative) 03/19/22 16:39 Urine Nitrite Negative (Negative) 03/19/22 16:39 Ur Leukocyte Esterase Negative (Negative) 03/19/22 16:39 Urine RBC 0-2 /HPF (0-2) 03/19/22 16:39 Urine WBC 0-5 /HPF (0-5) 03/19/22 16:39 Ur Squamous Epith Cells 0-2 /HPF (0-2) 03/19/22 16:39 Urine Bacteria None Seen (None Seen) 03/19/22 16:39 Hyaline Casts 3-5 /LPF (0-2) 03/19/22 16:39 COVID-19 (COURT) Negative (Negative) 03/19/22 10:56 COVID-19 Clin Com See Note 03/19/22 10:56 Hep Bs Antigen Negative (Negative) 03/20/22 06:01 Hep Bs Antibody NONREACTIVE (Nonreactive) 03/20/22 06:01 Hep B Core Total Ab Nonreactive (Nonreactive) 03/20/22 06:01 Hepatitis C Ab (EIA) Nonreactive (Nonreactive) 03/20/22 06:01 Impressions Abdomen/Pelvis CT 03/19/22 12:58 IMPRESSION: Colonic diverticulosis with equivocal sigmoid colonic wall thickening, equivocal for a mild uncomplicated sigmoid diverticulitis. No kaycee pericolonic inflammatory fat stranding. No organized fluid collection or extraluminal air. Hepatic steatosis. Discharge Plan Discharge Anticipated Discharge Date/Time: 03/22/22 11:13 Patient Disposition: Home, Self-Care Discharge Diagnosis: diverticulitis elevated liver enzymes Referrals: Rickey Watt [Physician] - 2 Weeks Will Larios MD [Primary Care Provider] - 1 Week Discharge Medications: New amoxicillin-pot clavulanate 875-125 mg tablet 1 tab PO BID Qty: 10 0RF Continued atorvastatin 40 mg tablet 1 tab PO DAILY diltiazem HCl 240 mg capsule,extended release 24hr 1 cap PO DAILY lisinopril 20 mg tablet 1 tab PO BEDTIME Xarelto 20 mg tablet 1 tab PO BEDTIME Qty: 30 0RF Discharge Orders: Discharge Order (Routine); Ordered 03/22/22 Ordered By: Erica Robert Activity on Discharge: Rest with bed elevated Stand Alone Forms: Patient Portal Discharge page Care Plan Goals: cure of diverticulitis Health Concerns: diverticulitis elevated liver enzymes Plan of Treatment: take antibiotic amoxicillin-clavulanate 875-125 mg twice daily for 5 days follow up with Dr Watt from GI for colonoscopy limit alcohol to maximum 0-2 servings/day Please follow up with your primary care doctor within 1 week. Return to the hospital if you experience recurrent or worsening symptoms. Assessment: See Discharge Summary.
== END 2022-03-22 12:05 | disposition home or self-care (01) | DRG 392 ==
LOC: HO.ED 15:43 → HO.EDOVER 16:04 → HO.S3 19:49 → HO.EDOVER 20:14 → HO.IMC 03-20 07:58
PROVIDERS: Nurse Practitioner Family; Admitting Provider Family Medicine; Emergency Provider Emergency Medicine; PCP Internal Medicine; Visit Provider Family Medicine
DX: K57.32 Diverticulitis of large intestine without perforation or abscess without bleeding (principal); E87.20 Acidosis, unspecified; F10.90 Alcohol use, unspecified, uncomplicated; I10 Essential (primary) hypertension; I48.0 Paroxysmal atrial fibrillation; E78.5 Hyperlipidemia, unspecified; Z20.822 Contact with and (suspected) exposure to COVID-19; Z79.899 Other long term (current) drug therapy
CPT/HCPCS: 36415; 74177; 80048; 80053; 80076; 81001; 82947; 83605; 83690; 85025; 85027; 86140; 86704; 86706; 86803; 87040; 87147; 87205; 87340; 87635; 93005; 99285; J0696; J1170; J1956; J2270; J2405; Q9967